=== PATIENT | female | born 1965 | race Caucasian/White ===

== ENCOUNTER 2016-05-20 20:19 | Emergency (ER) | payer OTHER ==
[~2016-05-20] VITALS: Ht 162.6 cm; Wt 152.2 kg
[~2016-05-20 20:19] MED LIST: ACET-785 PO; ALBUTEROL INHALER; AMOX500T10 PO; DIPH50CA34 PO; FLUT1DIS4 ORAL INH; GUAI-485 PO; IBUP-1324 PO; IPRA3AMP AEROSOL; LISI-127 PO; LORA10TA3 PO; PRED-221 PO; [UNRECOGNIZED DRUG - CODE] PO
--- OUTSIDE RECORDS SUMMARY | 2016-05-20 20:22 | XMS REPORT | Referral Summary ---
Author Author [facility] Organization [facility] Address Unknown Phone Unavailable Care Team Providers Care Caretaker Grounds Name Role Phone Kristal Li Primary Care Physician [phone] Encounter VC Date(s): 12/26/14 - 12/26/14 [facility] [address] [place] [address]- Discharge Disposition: 01-Home or Self Care Attending Physician: Dante Li MD Admitting Physician: Dante Li MD Vital Signs Most recent to 1 oldest [Reference Range]: Peripheral Pulse 87 bpm Rate [60-100 bpm] (12/26/14 10:56 AM) Blood Pressure 114/76 mmHg [90-140/60-90 mmHg] (12/26/14 10:56 AM) SpO2 94 % (12/26/14 10:56 AM) Problem List Condition Effective Dates Status Health Status Informant Anemia(Confirmed) Active Anxiety(Confirmed) Active Asthma(Confirmed) Resolved Benign essential Active hypertension (disorder)(Confirmed ) Chicken Active pox(Confirmed) COPD(Confirmed) Resolved Depression(Confirmed Active ) Exacerbation of Active asthma (disorder)(Confirmed ) Headache(Confirmed) Active Hypertension(Confirm Resolved ed) Migraine Active (disorder)(Confirmed ) Morbid Resolved obesity(Confirmed) Tobacco Active use(Confirmed) Varicella Active zoster(Confirmed) Allergies, Adverse Reactions, Alerts No Known Medication Allergies Medications Claritin-D 24 Hour tabs, Oral, Daily, as needed for allergy symptoms, 0 Refill(s) Start Date: 02/12/14 Status: Ordered Depakote 250 mg oral delayed release tablet See Instructions, Takes 1500mg QHS, # 60 tabs, 2 Refill(s), eRx: [facility] #[id number], TAKE ONE TABLET BY MOUTH TWICE A DAY Start Date: 07/10/14 Status: Ordered Excedrin Migraine 2 tabs, Oral, q6hr, Migraine Headache, 0 Refill(s) Start Date: 05/13/14 Status: Ordered hydrOXYzine See Instructions, 25mg during the day and 50mg at HS, 0 Refill(s) Start Date: 12/26/14 Status: Ordered ipratropium-albuterol 0.5 mg-2.5 mg/3 mLinhalation solution 3 mL, Inhalation, QID, Wheezing, # 90 mL, 1 Refill(s), Pharmacy: [facility] #[id number] Start Date: 11/22/13 Status: Ordered lisinopril 10 mg oral tablet See Instructions, TAKE ONE TABLET BY MOUTH DAILY, # 90 tabs, eRx: [facility] #[id number], TAKE ONE TABLET BY MOUTH DAILY Start Date: 11/06/14 Status: Ordered Mucinex DM tabs, Oral, q12hr, SINUS CONGESTION, 0 Refill(s) Start Date: 02/12/14 Status: Ordered traZODone 100 mg oral tablet 100 mg 1 tabs, Oral, Bedtime (once a day), 0 Refill(s) Start Date: 12/26/14 Status: Ordered Tylenol Extra Strength mg, Oral, q6hr, 0 Refill(s) Start Date: 02/12/14 Status: Ordered Ventolin HFA 90 mcg/inh inhalation aerosol 2 puffs, Inhalation, QID, as needed for wheezing Start Date: 08/04/13 Status: Ordered Results No data available for this section Immunizations Vaccine Date Refusal Reason influenza virus vaccine, inactivated 11/18/14 influenza virus vaccine, inactivated1 11/22/13 influenza virus vaccine, live 12/07/12 influenza virus vaccine, live 11/26/11 tetanus-diphth toxoids (Td) adult/adol 08/20/04 1Result Comment: [11/22/2013] SEE SCANNED NOTE Procedures Procedure Date Related Diagnosis Body Site S/P right knee arthroscopy/"clean up" 2012 Arthroscopic debridement of knee joint, right 04/24/10 H/O removal of cyst from chest Hysterectomy Social History Social History Type Response Smoking Status Former smoker; Type: Cigarettes; Tobacco use per day: 1 Pack ; Number of years: 36 Assessment and Plan Extracted from: Title: Office Visit Note Author: Dante Li MD Date: 12/26/14 Assessment/Plan Ganglion cyst Orders: divalproex sodium, See Instructions, Takes 1500mg QHS, # 60 tabs, 2 Refill(s), eRx: [facility] #[id number], TAKE ONE TABLET BY MOUTH TWICE A DAY Internal Referral to Orthopedic We discussed ganglion cyst and recommended referral for full excision. We will arrange a consultation. We discussed weight loss approach and also talked about hearing loss and whether or not to do hearing testing. Now we decided just to observe and follow-up if this problem gets worse. Otherwise follow-up with me when necessary. Referrals to Other Providers ganglion cyst on wrist Referred by: Dante Li MD
--- OUTSIDE RECORDS SUMMARY | 2016-05-20 20:22 | XMS REPORT | Referral Summary ---
Author Author [facility] Organization [facility] Address Unknown Phone Unavailable Care Team Providers Care Study Manager Name Role Phone Kristal Li Primary Care Physician [phone] Encounter VC Date(s): 11/18/14 - 11/18/14 [facility] [address] [place] [address] Discharge Disposition: 01-Home or Self Care Attending Physician: Dante Li MD Admitting Physician: Dante Li MD Vital Signs No data available for this section Problem List Condition Effective Dates Status Health Status Informant Anemia(Confirmed) Active Anxiety(Confirmed) Active Asthma(Confirmed) Resolved Asthma(Confirmed) Active patient Benign essential Active hypertension (disorder)(Confirmed ) Chicken Active pox(Confirmed) COPD(Confirmed) Resolved Depression(Confirmed Active ) Exacerbation of Active asthma (disorder)(Confirmed ) Orthopedic Active aftercare(Confirmed) Ganglion cyst of Active wrist(Confirmed) Headache(Confirmed) Active Hypertension(Confirm Resolved ed) Migraine Active (disorder)(Confirmed ) Morbid Resolved obesity(Confirmed) Morbid Active patient obesity(Confirmed) ZURI (obstructive Active patient sleep apnea)(Confirmed) Tobacco Active use(Confirmed) Varicella Active zoster(Confirmed) Allergies, Adverse Reactions, Alerts No Known Medication Allergies Substance Reaction Severity Status Latex Rash Active Medications Claritin-D 24 Hour tabs, Oral, Daily, as needed for allergy symptoms, 0 Refill(s) Start Date: 02/12/14 Status: Ordered Depakote Oral, TID, 0 Refill(s) Start Date: 03/05/15 Status: Ordered Depakote 250 mg oral delayed release tablet See Instructions, Takes 1500mg QHS, # 60 tabs, 2 Refill(s), eRx: [facility] #[id number], TAKE ONE TABLET BY MOUTH TWICE A DAY Start Date: 07/10/14 Status: Ordered hydrOXYzine See Instructions, 25mg during the day and 50mg at HS, 0 Refill(s) Start Date: 12/26/14 Status: Ordered ipratropium-albuterol 0.5 mg-2.5 mg/3 mLinhalation solution 3 mL, Inhalation, QID, Wheezing, # 1 boxes, 1 Refill(s), Pharmacy: [facility] #[id number] Start Date: 04/28/15 Status: Ordered lisinopril 10 mg oral tablet See Instructions, TAKE ONE TABLET BY MOUTH DAILY, # 90 tabs, eRx: [facility] #[id number], TAKE ONE TABLET BY MOUTH DAILY Start Date: 05/05/15 Status: Ordered Lortab 10/325 oral tablet 1 tabs, Oral, q4hr, # 60 tabs, 0 Refill(s) Start Date: 03/06/15 Status: Ordered Mucinex DM tabs, Oral, q12hr, SINUS CONGESTION, 0 Refill(s) Start Date: 02/12/14 Status: Ordered traZODone 100 mg oral tablet 100 mg 1 tabs, Oral, Bedtime (once a day), 0 Refill(s) Start Date: 12/26/14 Status: Ordered Tylenol Extra Strength mg, Oral, q6hr, 0 Refill(s) Start Date: 02/12/14 Status: Ordered Ventolin HFA 90 mcg/inh inhalation aerosol See Instructions, INHALE TWO PUFFS BY MOUTH EVERY 4 TO 6 HOURS NEEDED, # 18 unknown unit, 1 Refill(s), eRx: [facility] #[id number], INHALE TWO PUFFS BY MOUTH EVERY 4 TO 6 HOURS NEEDED Start Date: 02/13/15 Status: Ordered Results No data available for this section Immunizations Vaccine Date Refusal Reason influenza virus vaccine, inactivated 11/18/14 influenza virus vaccine, inactivated1 11/22/13 influenza virus vaccine, live 12/07/12 influenza virus vaccine, live 11/26/11 tetanus-diphth toxoids (Td) adult/adol 08/20/04 1Result Comment: [11/22/2013] SEE SCANNED NOTE Procedures Procedure Date Related Diagnosis Body Site Excision of left dorsal wrist ganglion cyst 03/06/15 S/P right knee arthroscopy/"clean up" 2012 Arthroscopic debridement of knee joint, right 04/24/10 H/O removal of cyst from chest Hysterectomy Social History Social History Type Response Smoking Status Former smoker; Type: Cigarettes; Tobacco use per day: 1 Pack ; Number of years: 35 Assessment and Plan No data available for this section
--- OUTSIDE RECORDS SUMMARY | 2016-05-20 20:22 | XMS REPORT | Referral Summary ---
Author Author [facility] Organization [facility] Address Unknown Phone Unavailable Care Team Providers Care Nursing Home Admissions Director Name Role Phone Kristal Li Primary Care Physician [phone] Encounter Date(s): 09/18/15 - 09/18/15 [facility] [address] [place], [place] [address] Discharge Diagnosis: Shortness of breath Discharge Disposition: 01-Home or Self Care Attending Physician: Stanislaw Hirsch MD Admitting Physician: Stanislaw Hirsch MD Referring Physician: Dante Li MD Vital Signs Most recent to 1 oldest [Reference Range]: Peripheral Pulse 87 bpm Rate [60-100 bpm] (09/18/15 1:32 PM) Blood Pressure 122/70 mmHg [90-140/60-90 mmHg] (09/18/15 1:32 PM) SpO2 96 % (09/18/15 1:32 PM) Problem List Condition Effective Dates Status Health [...] ZURI (obstructive Active patient sleep apnea)(Confirmed) Tobacco < 11/21/13 Resolved use(Confirmed) Varicella Active zoster(Confirmed) Allergies, Adverse Reactions, Alerts No Known Medication Allergies Substance Reaction Severity Status Latex Rash Active Medications Advil Migraine 1 tabs, Oral, q6hr, as needed for migraine headache, 0 Refill(s) Start Date: 09/18/15 Status: Ordered lisinopril 10 mg oral tablet See Instructions, TAKE ONE TABLET BY MOUTH DAILY, # 90 tabs, eRx: [facility] #[id number], TAKE ONE TABLET BY MOUTH DAILY Start Date: 08/04/15 Status: Ordered Tylenol Extra Strength 1 tabs, Oral, q6hr, as needed for pain, 0 Refill(s) Start Date: 02/12/14 Status: Ordered Ventolin HFA 90 mcg/inh inhalation aerosol See Instructions, INHALE TWO PUFFS BY MOUTH EVERY 4 TO 6 HOURS NEEDED, # 18 unknown unit, 1 Refill(s), eRx: [facility] #[id number], INHALE TWO PUFFS BY MOUTH EVERY 4 [...] 35 Assessment and Plan Extracted from: Title: Consult Note Author: Stanislaw Hirsch MD Date: 09/18/15 Assessment/Plan 1.Shortness of breath Review of her imaging indicates normal chest x-rays. PFTs was slightly reduced FVC and ERVbut with a relatively normal total lung capacity and minimally reduced diffusion capacity. These changes can be seen with obesity. Shortness of breathmost likely multifactorialrelated to smoking, morbid obesityand deconditioning. It is unclear if the patient has stopped smoking, she mentioned that she stoped9 months ago but then reported smoking a cigarette every now and then upto 2-3 months ago. Other causes would include diastolic heart failure andasthmaalthough clinicallydoes not seem like she has asthma. Plan: Methacholine challenge test to rule out asthma Echocardiogram Encouraged weight losswith exercise and diet Counseled regardingsmoking cessationand avoiding secondhand smoke Continue to use CPAP for ZURI Return to clinicin 4-6 weeks
--- OUTSIDE RECORDS SUMMARY | 2016-05-20 20:23 | XMS REPORT | Referral Summary ---
Author Author [facility] Organization [facility] Address Unknown Phone Unavailable Care Team Providers Care Seal Extrusion Operator Name Role Phone Kristal Li Primary Care Physician [phone] Encounter [facility] [id number] Date(s): 03/06/15 - 03/06/15 [facility] [address] [place], [place] [address] Discharge Diagnosis: Ganglion cyst of wrist Discharge Disposition: 01-Home or Self Care Attending Physician: Jose Chambers MD Admitting Physician: Jose Chambers MD Vital Signs Most recent to 1 oldest [Reference Range]: Temperature Temporal 36.5 degC Artery [36.3-37.8 (03/06/15 6:31 AM) degC] Peripheral Pulse 98 bpm Rate [60-100 bpm] (03/06/15 6:31 AM) Respiratory Rate 20 br/min [14-20 br/min] (03/06/15 6:31 AM) Blood Pressure 137/72 mmHg [90-140/60-90 mmHg] (03/06/15 6:31 AM) SpO2 96 % (03/06/15 6:31 AM) Problem List Condition Effective Dates Status Health Status Informant Anemia(Confirmed) Active Anxiety(Confirmed) Active Asthma(Confirmed) Resolved Asthma(Confirmed) Active patient Benign essential Active hypertension (disorder)(Confirmed ) Chicken Active pox(Confirmed) COPD(Confirmed) Resolved Depression(Confirmed Active ) Exacerbation of Active asthma (disorder)(Confirmed ) Ganglion cyst of Active wrist(Confirmed) Headache(Confirmed) Active [...] QHS, # 60 tabs, 2 Refill(s), eRx: [facility] #[id number], TAKE ONE TABLET BY MOUTH TWICE A DAY Start Date: 07/10/14 Status: Ordered hydrOXYzine See Instructions, 25mg during the day and 50mg at HS, 0 Refill(s) Start Date: 12/26/14 Status: Ordered ipratropium-albuterol 0.5 mg-2.5 mg/3 mLinhalation solution 3 mL, Inhalation, QID, Wheezing, # 90 mL, 1 Refill(s), Pharmacy: [facility] #[id number] Start Date: 11/22/13 Status: Ordered ketorolac 10 mg oral tablet 10 mg 1 tabs, Oral, QID, as needed for pain, not to exceed 40 mg/day and 5 days duration for all dose forms, # 19 tabs, 0 Refill(s) Start Date: 03/06/15 Stop Date: 03/11/15 Status: Ordered lisinopril 10 mg oral tablet See Instructions, TAKE ONE TABLET BY MOUTH DAILY, # 90 tabs, eRx: [facility] #[id number], TAKE ONE TABLET BY MOUTH DAILY Start Date: 02/03/15 Status: Ordered Lortab 10/325 oral tablet 1 [...] # 18 unknown unit, 1 Refill(s), eRx: [facility] #[id number], INHALE TWO PUFFS BY MOUTH EVERY 4 [...] 35 Assessment and Plan Extracted from: Title: Ambulatory Patient Education Author: Harper Coates RN Date: [facility] [place] [facility] Operative Instructions Ambulation _ Unrestricted _On Crutches as tolerated - _ Weight Bearing: _ Partial _ Full _x nonweight bearing Exercise _x None _Light _ _Unrestricted _ _Other: _Do not strain or lift more than lbs. for weeks. Diet __ Liquids (Jell-O, soups, etc., if you are nauseated) __ Begin with liquids and light foods then progress to regular diet. __x Regular diet __ No alcoholic beverages for 24 hours or while taking pain medication. Personal hygiene _x_ Bath or shower (keep splint dry) __ Shower after __ hours __ Sponge Bath __ [facility] __ Remove dressing in ___hours _x_ Keep dressing clean and dry. _x_ Elevate affected area above level of your heart. _x_ Do not change dressing until you see your doctor. __ Apply ice to area for ___ hours __ Avoid blowing nose. __ Wear sling as directed. __ Keep water out of ears __ Remove drain in ___ hours __ Change dressing as necessary. Other: If any problems occur or if you have any further questions, please contact your physician. In an emergency, call [phone] ([phone]), if you cannot reach your physician. If you find that you cannot contact your physician, but feel that your signs and symptoms warrant a physicians attention, go to an Emergency room which is the closest to you. Activities: _x_ Take Tylenol/ibuprofen as needed for discomfort _x_ Prescription given for discomfort. Use as directed. __ Prescription given for antibiotic. Follow instructionson label. Continue taking until medication is gone. __ Resume routine medications. __ Ear drainage more than Days __ Stool softener Next dose of pain medicine may be given at (Take with food to prevent stomach upset.) Other: Call your surgeon promptly if you have: _x_ Fever over _100.4 __ Pain not relieved by pain medication _x_ Bleeding or unexpected drainage from incision __ Extreme redness or swelling around incision. __ Inability to urinate by: __ Persistent nausea and vomiting. __ Cough develops or difficulty breathing Do NOT drive or operate hazardous machinery for 24 hours or while taking pain medication. Do not sign any important documents or make important decisions for 24 hours following surgery. When taking pain medicine, be careful as you walk or climb stairs as dizziness is not unusual. Check temperature every four hours during the day for two days. Follow Up With: Where: When: Jose Chambers [address] [place] [address] Business (1) In 2 weeks 03/20/2015 Comments:
--- OUTSIDE RECORDS SUMMARY | 2016-05-20 20:23 | XMS REPORT | Referral Summary ---
Author Author [facility] Organization [facility] Address Unknown Phone Unavailable Care Team Providers Care Credit Verification Clerk Name Role Phone Kristal Li Primary Care Physician [phone] Encounter VC Date(s): 10/30/15 - 10/30/15 [facility] [address] [place] [address]- Discharge Disposition: 01-Home or Self Care Attending Physician: Sanchez Wright APRN Admitting Physician: Sanchez Wright APRN Vital Signs Most recent to 1 oldest [Reference Range]: Temperature Tympanic 36.9 degC [36.6-38.1 degC] (10/30/15 3:43 PM) Peripheral Pulse 87 bpm Rate [60-100 bpm] (10/30/15 3:43 PM) Respiratory Rate 17 br/min [14-20 br/min] (10/30/15 3:43 PM) Blood Pressure 138/88 mmHg [90-140/60-90 mmHg] (10/30/15 3:43 PM) SpO2 98 % (10/30/15 3:43 PM) Problem List Condition Effective Dates Status [...] BY MOUTH DAILY, # 90 tabs, eRx: [facility] #[id number], TAKE ONE TABLET BY MOUTH DAILY Start Date: 08/04/15 Status: Ordered meloxicam 15 mg oral tablet See Instructions, TAKE ONE TABLET BY MOUTH DAILY, # 30 tabs, 0 Refill(s), Pharmacy: [facility] #[id number], TAKE ONE TABLET BY MOUTH DAILY Start Date: 10/30/15 Status: Ordered Tylenol Extra Strength 1 tabs, Oral, q6hr, as needed for pain, 0 Refill(s) Start Date: 02/12/14 Status: Ordered Ventolin HFA 90 mcg/inh inhalation aerosol See Instructions, INHALE TWO PUFFS BY MOUTH EVERY 4 TO 6 HOURS NEEDED, # 18 unknown unit, 1 Refill(s), eRx: [facility] #[id number], INHALE TWO PUFFS BY MOUTH EVERY 4 TO 6 HOURS NEEDED Start Date: 02/13/15 Status: Ordered Results Chemistry Most recent to 1 oldest [Reference Range]: Sodium Lvl [135-144 141 mEq/L mEq/L] (10/30/15 4:39 PM) Potassium Lvl 5.0 mEq/L [3.5-5.2 mEq/L] (10/30/15 4:39 PM) Chloride [99-111 103 mEq/L mEq/L] (10/30/15 4:39 PM) CO2 [22-31 mEq/L] 31 mEq/L (10/30/15 4:39 PM) AGAP [3-20] 7 (10/30/15 4:39 PM) BUN [7-19 mg/dL] 17 mg/dL (10/30/15 4:39 PM) Glucose Lvl [70-99 96 mg/dL mg/dL] (10/30/15 4:39 PM) Creatinine Lvl 0.73 mg/dL [0.57-1.11 mg/dL] (10/30/15 4:39 PM) eGFR [>60 mL/min] >60 mL/min 1 (10/30/15 4:39 PM) Calcium Lvl 10.0 mg/dL [8.9-10.5 mg/dL] (10/30/15 4:39 PM) 1Result Comment: Multiply eGFR results by 1.21 for race. Immunizations Vaccine Date Refusal Reason influenza virus [...]
--- OUTSIDE RECORDS SUMMARY | 2016-05-20 20:23 | XMS REPORT | Referral Summary ---
Author Author [facility] Organization [facility] Address Unknown Phone Unavailable Care Team Providers Care Subsurface Augmentee Elint Operator Name Role Phone Kristal Li Primary Care Physician [phone] Encounter Date(s): 09/18/15 - 09/18/15 [facility] [address] [place], [place] [address] Discharge Disposition: 01-Home or Self Care Attending Physician: Stanislaw Hirsch MD Referring Physician: Stanislaw Hirsch MD Vital Signs No data available for [...] BY MOUTH DAILY, # 90 tabs, eRx: [facility] #[id number], TAKE ONE TABLET BY MOUTH DAILY Start Date: 08/04/15 Status: Ordered Tylenol Extra Strength 1 tabs, Oral, q6hr, as needed for pain, 0 Refill(s) Start Date: 02/12/14 Status: Ordered Ventolin HFA 90 mcg/inh inhalation aerosol See Instructions, INHALE TWO PUFFS BY MOUTH EVERY 4 TO 6 HOURS NEEDED, # 18 unknown unit, 1 Refill(s), eRx: [facility] #[id number], INHALE TWO PUFFS BY MOUTH EVERY 4 [...]
--- OUTSIDE RECORDS SUMMARY | 2016-05-20 20:23 | XMS REPORT | Referral Summary ---
Author Author [facility] Organization [facility] Address Unknown Phone Unavailable Care Team Providers Care Escort Car Driver Name Role Phone Kristal Li Primary Care Physician [phone] Encounter VC Date(s): 04/28/15 - 04/28/15 [facility] [address] [place] [id number]- Discharge Disposition: 01-Home or Self Care Attending Physician: Sanchez Wright APRN Admitting Physician: Sanchez Wright APRN Vital Signs Most recent to 1 oldest [Reference Range]: Temperature Tympanic 38.5 degC [36.6-38.1 degC] *HI* (04/28/15 2:30 PM) Peripheral Pulse 123 bpm Rate [60-100 bpm] *HI* (04/28/15 2:30 PM) Blood Pressure 120/60 mmHg [90-140/60-90 mmHg] (04/28/15 2:30 PM) SpO2 92 % (04/28/15 2:30 PM) Problem List Condition Effective Dates Status [...] Reaction Severity Status Latex Rash Active Medications Augmentin 875 mg-125 mg oral tablet 1 tabs, Oral, q12hr, X 10 days, # 20 tabs, 0 Refill(s), Pharmacy: [facility] #[id number] Start Date: 04/28/15 Stop Date: 05/08/15 Status: Ordered Claritin-D 24 Hour tabs, Oral, Daily, as needed for allergy symptoms, 0 Refill(s) Start Date: 02/12/14 Status: Ordered Depakote Oral, TID, 0 Refill(s) Start Date: 03/05/15 Status: Ordered Depakote 250 mg oral delayed release tablet See Instructions, Takes 1500mg QHS, # 60 tabs, 2 Refill(s), eRx: [facility] #[id number], TAKE ONE TABLET BY MOUTH TWICE A DAY Start Date: 07/10/14 Status: Ordered hydrOXYzine See Instructions, 25mg during the day and 50mg at HS, 0 Refill(s) Start Date: 12/26/14 Status: Ordered ipratropium-albuterol 0.5 mg-2.5 mg/3 mLinhalation solution 3 mL, Inhalation, QID, Wheezing, # 1 boxes, 1 Refill(s), Pharmacy: [facility] #[id number] Start Date: 04/28/15 Status: Ordered lisinopril 10 mg oral tablet See Instructions, TAKE ONE TABLET BY MOUTH DAILY, # 90 tabs, eRx: [facility] #[id number], TAKE ONE TABLET BY MOUTH DAILY Start Date: 02/03/15 Status: Ordered Lortab 10/325 oral tablet 1 tabs, Oral, q4hr, # 60 tabs, 0 Refill(s) Start Date: 03/06/15 Status: Ordered Mucinex DM tabs, Oral, q12hr, SINUS CONGESTION, 0 Refill(s) Start Date: 02/12/14 Status: Ordered predniSONE 10 mg oral tablet See Instructions, 5 tabs PO for 3 days then 4 tabs PO for 3 days then 3 tabs PO for 3 days then 2 tabs PO for 3 days then 1 tab PO for 3 days, # 45 tabs, 0 Refill(s), Pharmacy: [facility] #[id number], 5 tabs PO for 3 days then 4 tabs PO for 3 days t... Start Date: 04/28/15 Stop Date: 05/12/15 Status: Ordered traZODone 100 mg oral tablet 100 mg 1 tabs, Oral, Bedtime (once a day), 0 Refill(s) Start Date: 12/26/14 Status: Ordered Tylenol Extra Strength mg, Oral, q6hr, 0 Refill(s) Start Date: 02/12/14 Status: Ordered Ventolin HFA 90 mcg/inh inhalation aerosol See Instructions, INHALE TWO PUFFS BY MOUTH EVERY 4 TO 6 HOURS NEEDED, # 18 unknown unit, 1 Refill(s), eRx: [facility] #[id number], INHALE TWO PUFFS BY MOUTH EVERY 4 TO 6 HOURS NEEDED Start Date: 02/13/15 Status: Ordered Results Hematology Most recent to 1 oldest [Reference Range]: WBC [5.0-10.0 9.1 10*3/uL 10*3/uL] (04/28/15 3:11 PM) RBC [3.70-5.20] 4.88 (04/28/15 3:11 PM) Hgb [12.0-16.0 13.7 gm/dL gm/dL] (04/28/15 3:11 PM) Hct [37.0-47.0 %] 41.1 % (04/28/15 3:11 PM) MCV [80.0-96.0 fL] 84.2 fL (04/28/15 3:11 PM) MCH [26.0-34.0 pg] 28.1 pg (04/28/15 3:11 PM) MCHC [32.0-36.0 33.3 gm/dL gm/dL] (04/28/15 3:11 PM) RDW [0.0-14.5 %] 13.4 % (04/28/15 3:11 PM) Platelet [150-400 283 10*3/uL 10*3/uL] (04/28/15 3:11 PM) MPV [8.8-14.8 fL] 9.1 fL (04/28/15 3:11 PM) Neutrophils [50-70 80 % %] *HI* (04/28/15 3:11 PM) Lymphocytes [20-40 10 % %] *LOW* (04/28/15 3:11 PM) Monocytes [4-8 %] 9 % *HI* (04/28/15 3:11 PM) Eosinophils [0-6 %] 0 % (04/28/15 3:11 PM) Basophils [0-2 %] 0 % (04/28/15 3:11 PM) Neutro Absolute 7.35 10*3 [2.50-7.00 10*3] *HI* (04/28/15 3:11 PM) Lymph Absolute 0.95 10*3 [1.00-4.00 10*3] *LOW* (04/28/15 3:11 PM) Perry Absolute 0.80 10*3 [0.20-0.80 10*3] (04/28/15 3:11 PM) Eos Absolute 0.01 10*3 [0.00-0.60 10*3] (04/28/15 3:11 PM) Baso Absolute 0.03 [0.00-0.30] (04/28/15 3:11 PM) Immunizations Vaccine Date Refusal Reason influenza virus vaccine, inactivated 11/18/14 influenza virus vaccine, inactivated1 11/22/13 influenza virus vaccine, live 12/07/12 influenza virus vaccine, live 11/26/11 tetanus-diphth toxoids (Td) adult/adol 08/20/04 1Result Comment: [11/22/2013] SEE SCANNED NOTE Procedures Procedure Date Related Diagnosis Body Site Collection of venous blood by venipuncture 04/28/15 Excision of left dorsal wrist ganglion cyst [...]
--- OUTSIDE RECORDS SUMMARY | 2016-05-20 20:23 | XMS REPORT | Referral Summary ---
Author Author [facility] Organization [facility] Address Unknown Phone Unavailable Care Team Providers Care Manager [place] Name Role Phone [email or web address] Primary Care Physician [phone] Encounter VC Date(s): 01/13/15 - 01/13/15 [facility] [address] [place], [place] [address] Discharge Diagnosis: Ganglion cyst of wrist Discharge Disposition: 01-Home or Self Care Attending Physician: Jose Chambers MD Admitting Physician: Jose Chambers MD Vital Signs No data available for [...] Morbid Resolved obesity(Confirmed) Morbid Active patient obesity(Confirmed) Tobacco Active use(Confirmed) Varicella Active zoster(Confirmed) Allergies, Adverse Reactions, Alerts No Known Medication Allergies Medications Claritin-D 24 Hour tabs, Oral, Daily, as needed for allergy symptoms, 0 Refill(s) Start Date: 02/12/14 Status: Ordered Depakote 250 mg oral delayed release tablet See Instructions, Takes 1500mg QHS, # 60 tabs, 2 Refill(s), eRx: [facility] #[id number], TAKE ONE TABLET BY MOUTH TWICE A DAY Start Date: 07/10/14 Status: Ordered Excedrin Migraine 2 tabs, Oral, q6hr, Migraine Headache, 0 Refill(s) Start Date: 05/13/14 Status: Ordered hydrOXYzine See Instructions, 25mg during the day and 50mg at HS, 0 Refill(s) Start Date: 12/26/14 Status: Ordered ipratropium-albuterol 0.5 mg-2.5 mg/3 mLinhalation solution 3 mL, Inhalation, QID, Wheezing, # 90 mL, 1 Refill(s), Pharmacy: [facility] #[id number] Start Date: 11/22/13 Status: Ordered lisinopril 10 mg oral tablet See Instructions, TAKE ONE TABLET BY MOUTH DAILY, # 90 tabs, eRx: [facility] #[id number], TAKE ONE TABLET BY MOUTH DAILY Start [...] Extracted from: Title: Ambulatory Patient Education Author: Jose Chambers MD Date: Procedures Ganglion Cyst A ganglion cyst is a noncancerous, fluid-filled lump that occurs near joints or tendons. The ganglion cyst grows out of a joint or the lining of a tendon. It most often develops in the hand or wrist but can also develop in the shoulder, elbow, hip, knee, ankle, or foot. The round or oval ganglion can be pea sized or larger than a grape. Increased activity may enlarge the size of the cyst because more fluid starts to build up. CAUSES It is not completely known what causes a ganglion cyst to grow. However, it may be related to: Inflammation or irritation around the joint. An injury. Repetitive movements or overuse. Arthritis. SYMPTOMS A lump most often appears in the hand or wrist, but can occur in other areas of the body. Generally, the lump is painless without other symptoms. However, sometimes pain can be felt during activity or when pressure is applied to the lump. The lump may even be tender to the touch. Tingling, pain, numbness, or muscle weakness can occur if the ganglion cyst presses on a nerve. Your computer systems technician may be weak and you may have less movement in your joints. DIAGNOSIS Ganglion cysts are most often diagnosed based on a physical exam, noting where the cyst is and how it looks. Your caregiver will feel the lump and may shine a light alongside it. If it is a ganglion, a light often shines through it. Your caregiver may order an X-ray, ultrasound, or MRI to rule out other conditions. TREATMENT Ganglions usually go away on their own without treatment. If pain or other symptoms are involved, treatment may be needed. Treatment is also needed if the ganglion limits your movement or if it gets infected. Treatment options include : Wearing a wrist or finger brace or splint. Taking anti-inflammatory medicine. Draining fluid from the lump with a needle (aspiration). Injecting a steroid into the joint. Surgery to remove the ganglion cyst and its stalk that is attached to the joint or tendon. However, ganglion cysts can grow back. HOME CARE INSTRUCTIONS Do not press on the ganglion, poke it with a needle, or hit it with a heavy object. You may rub the lump gently and often. Sometimes fluid moves out of the cyst. Only take medicines as directed by your caregiver. Wear your brace or splint as directed by your caregiver. SEEK MEDICAL CARE IF: Your ganglion becomes larger or more painful. You have increased redness, red streaks, or swelling. You have pus coming from the lump. You have weakness or numbness in the affected area. MAKE SURE YOU: Understand these instructions. Will watch your condition. Will get help right away if you are not doing well or get worse. Document Released: 01/28/2001 Document Revised: 10/25/2012 Document Reviewed: ExitCare Patient Information 2015 [employer]. This information is not intended to replace advice given to you by your health care provider. Make sure you discuss any questions you have with your health care provider. No follow up information was provided. Extracted from: Title: Office Visit Note Author: Jose Chambers MD Date: 01/13/15 Assessment/Plan X-ray shows no abnormalities of the wrist. Normal joint space alignment. No arthritic changes. I expanded the patient the process of removing the cyst. Withcapsulectomyassociated with the cyst. I explained that there will be discomfort for about a months or so after the procedure. She'll be in a wrist splint that will allow her to move her fingers right after the surgery. I did suggest that she take approximately5-7 days off work. I spend the rest of the procedure bleeding, infection, damage to nerve or tendon, E for further surgery, return of the cyst. Patient was scheduled for the near future.
--- OUTSIDE RECORDS SUMMARY | 2016-05-20 20:23 | XMS REPORT | Continuity of Care Document ---
Author Author [facility] Organization [facility] Address Unknown Phone Unavailable Support Name Relationship Address Phone SHANNAN RIVAS MD Caregiver [address] [place] [address] [place] [address] LEONA GILMAN MD Caregiver [address] [address] Unavailable JEREMIAH ABBASI MD Caregiver [address] [place], [place] [id number] ELVIS CASTRO Next Of Kin [address] [place] [address] Insurance Providers Payer Name Policy Number Subscriber Name Relationship [facility] [id number] Jeff Conley 19 Self Advance Directives Directive Response Recorded Date/Time Advanced Directives Type None 08/07/13 11:51pm Ordered Resuscitation Status Full Code 08/04/13 7:45pm Chief Complaint and Reason for Visit Chief Complaint COPD EXACERBATION Reason for Visit Pneumonia Asthma History of hypertension COPD exacerbation COPD exacerbation Hx of migraine headaches Morbid obesity with BMI of 50.0-59.9, adult Problems Medical Problems Problem Onset Date Status Pneumonia Unknown Active Asthma Unknown Active History of hypertension Unknown Active SIRS (systemic inflammatory response syndrome) Unknown Active Obesity (BMI 35.0-39.9 without comorbidity) Unknown Active COPD exacerbation Unknown Active COPD exacerbation Unknown Active Hx of migraine headaches Unknown Active Morbid obesity with BMI of 50.0-59.9, adult Unknown Active Medications Medication Dose Route Sig Days/Qty Instructions Order Date Discontinued Date Status [Albuterol Inhaler] NEEDED 10/12/09 Active Aspirin/Acetaminophen/Caffeine 1 Tab PO NEEDED 04/23/10 Active Acetaminophen 325 Mg PO NEEDED 04/23/10 Active Ibuprofen 200 Mg PO NEEDED 04/23/10 Active Bupropion Hcl 150 Mg PO TWICE A DAY 12/21/12 08/04/13 Discontinued Lisinopril 10 Mg PO DAILY 12/21/12 Active Acetaminophen/Dp-Hydram Hcl 1 Tab PO BEDTIME 12/21/12 08/04/13 Discontinued Salmeterol Xinafoate/Fluticasone 1 Puff ORAL INH TWICE A DAY 1 Qty Active Amoxicillin Trihydrate 500 Mg PO THREE TIMES A DAY 21 Qty 08/06/13 Active Guaifenesin/D-Methorphan Hb 1 Tab.sr PO TWICE A DAY 10 Days 08/06/13 Active Prednisone 20 Mg PO taper 11 Qty 08/06/13 Active Albuterol Sulfate/Ipratropium 3 Ml AEROSOL FOUR TIMES DAILY 30 Days Active Diphenhydramine Hcl 50 Mg PO BEDTIME 14 Days 08/10/13 Active Loratadine 10 Mg PO BEFORE BREAKFAST 14 Days 08/10/13 Active Social History Query Response Start Date Stop Date Smoking Status Current every day smoker Hospital Discharge Instructions Instructions: Care Instructions: Reason for Hospitalization: COPD/Asthma with acute exasterbation Discharge Diet: Low sodium Condition at time of discharge: Good Care Plan Discharge Patient: Goal: Medication compliance Patient Instructions: see patient instructions Discharge Patient: Patient Instructions: see patient instructions Problem: see problem list Discharge Patient: Goal: Maximum functional status Patient Instructions: see patient instructions Discharge Patient: Patient Instructions: see patient instructions Problem: see problem list Discharge Patient: Patient Instructions: see patient instructions Problem: see problem list 1.Chest pain, difficulty breathing, fever>100.5 degrees, chills, heart rate >100, confusion, or persistent nausea/vomitting. 2.Severe pain, swelling, redness, or warmth in either of your legs. 3.During office hours, call [phone] 4. After hours, please call [facility] at [phone], and have the corn sheller operator page your Surgeon IN THE EVENT OF AN EMERGENCY, seek medical care at the nearest Emergency Room Condition at time of discharge: Good Care Plan Discharge Patient: Patient Instructions: see patient instructions Problem: see problem list Discharge Patient: Patient Instructions: see patient instructions Problem: see problem list Plan of Care Discharge Date 08/10/13 6:45pm Disposition 01 DISCHARGED HOME, SELF-CARE Instructions/Education Provided DI for Chronic Obstructive Pulmonary Disease Prescriptions See Medications Section Functional Status Query Response Date Recorded Physical Hygiene Self August 10, 2013 6:04pm Disabilities Visual August 10, 2013 6:04pm Devices Used None August 07, 2013 11:18pm Dressing Self August 06, 2013 1:02pm Ambulation Self August 10, 2013 6:04pm Diet Self August 06, 2013 1:02pm Mental Status Alert Oriented August 10, 2013 6:04pm Disabilities Visual August 10, 2013 6:04pm Devices Used None August 07, 2013 11:18pm Physical Hygiene Self August 10, 2013 6:04pm Dressing Self August 06, 2013 1:02pm Ambulation Self August 10, 2013 6:04pm Diet Self August 06, 2013 1:02pm Allergies, Adverse Reactions, Alerts Allergen Type Severity Reaction Status Last Updated No Known Allergies Active 08/07/13 Immunizations Name Given Type Hx Influenza Vaccination Y 11/2012 Historical Hx Pneumococcal Vaccination No Historical Hx Influenza Vaccination Y 11/2012 Historical Vital Signs Acute Vital Signs Vital Response Date/Time Temperature (Fahrenheit) 97.2 deg F (96.8 - 99.1) Temperature (Calculated Celsius) 36.54293 degrees C (36.0 - 37.3) Temperature Source Temporal Pulse Rate (adult) 71 bpm (60 - 100) Respiratory Rate 16 breaths/min (10 - 20) O2 Sat by Pulse Oximetry 95 % (90 - 100) Oxygen Delivery Method Room Air Height 5 ft 4.5 in Weight 305 lb Body Mass Index 51.0 kg/m^2 Results Test Source Date Result Interp. Ref. Range Comments Alanine Aminotransferase (ALT/SGPT) August 08, 2013 4:54am 80 U/L H 9-52 Albumin August 08, 2013 4:54am 3.7 G/DL N 3.5-5.0 Albumin/Globulin Ratio August 08, 2013 4:54am 1.2 RATIO N 1.1-2.2 Alkaline Phosphatase August 08, 2013 4:54am 110 U/L N 38-126 Anion Gap August 10, 2013 4:30am 7 MEQ/L N 5-15 Aspartate Amino Transf (AST/SGOT) August 08, 2013 4:54am 45 U/L H 14-36 BUN/Creatinine Ratio August 10, 2013 4:30am 37 RATIO H 6-26 Band Neutrophils # August 09, 2013 4:37am 0.2 T/MM3 - Band Neutrophils % August 09, 2013 4:37am 1.0 % N 0-6 Basophils # (Auto) August 07, 2013 8:00pm 0.0 T/MM3 N 0-0.2 Basophils # (Manual) August 04, 2013 11:52am 0.3 T/MM3 H 0-0.2 Basophils % (Manual) August 04, 2013 11:52am 2.0 % N 0-2 Basophils (%) (Auto) August 07, 2013 8:00pm 0.2 % N 0-2 Blood Urea Nitrogen August 10, 2013 4:30am 22.0 MG/DL DH 7-17 Calcium Level August 10, 2013 4:30am 8.8 MG/DL N 8.4-10.2 Calculated Osmolality August 10, 2013 4:30am 273 MOSM/KG N 261-280 Carbon Dioxide Level August 10, 2013 4:30am 33 MEQ/L H 22-30 Chemistry Specimen Hemolysis August 10, 2013 4:30am < 15 0-25 0-25: No Hemolysis.26-70: Slight Hemolysis - can falsely elevate K and Urine Protein. 71-285: Moderate Hemolysis - can falsely elevate K, Troponin I, CA 19-9, PTH, CSF GLucose, and Urine Protein, and can falsely decrease Phenytoin. 286-999: Gross Hemolysis - can falsely elevate K, Troponin I, CA 19-9, PTH, CSF Glucose, and Urine Protine, and can falsely decrease Phenytoin. Recommend specimen recollection. Chloride Level August 10, 2013 4:30am 99 MEQ/L N 98-107 Conjugated Bilirubin October 12, 2009 9:40am 0.00 MG/DL N 0.00-0.30 Creatinine August 10, 2013 4:30am 0.6 MG/DL L 0.7-1.2 Differential Total Cells Counted October 14, 2009 4:25am 100 % - Eosinophils # (Auto) August 07, 2013 8:00pm 0.0 T/MM3 N 0-0.5 Eosinophils # (Manual) August 05, 2013 5:20am 0.1 T/MM3 N 0-0.5 Eosinophils % (Manual) August 05, 2013 5:20am 1.0 % N 0-4 Eosinophils (%) (Auto) August 07, 2013 8:00pm 0.1 % N 0-4 Globulin August 08, 2013 4:54am 3.0 G/DL N 2.4-3.6 Glomerular Filtration Rate Calc August 10, 2013 4:30am 108 - Glucose Level August 10, 2013 4:30am 142 MG/DL H 65-110 Hematocrit August 10, 2013 4:30am 40.0 % N 36-46 Hemoglobin August 10, 2013 4:30am 12.7 GM/DL N 12-16 Icterus Index August 10, 2013 4:30am < 2 0-7 Immature Granulocyte # (Auto) August 07, 2013 8:00pm 0.15 T/MM3 H 0.00- 0.03 Immature Granulocyte % (Auto) August 07, 2013 8:00pm 1.2 % H 0.0-0.5 Influenza Type A Antigen October 12, 2009 9:40am Negative - Influenza Type B Antigen October 12, 2009 9:40am Negative - Lab Scanned Report August 04, 2013 10:05pm LAB TEST FORM REQUEST [id number] - Lymphocytes # (Auto) August 07, 2013 8:00pm 2.4 T/MM3 N 1-4.8 Lymphocytes # (Manual) August 10, 2013 4:30am 3.4 T/MM3 N 1-4.8 Lymphocytes % (Manual) August 10, 2013 4:30am 19.0 % L 23-45 Lymphocytes (%) (Auto) August 07, 2013 8:00pm 19.5 % L 23-45 Mean Corpuscular Hemoglobin August 10, 2013 4:30am 27.7 UUG N 26-34 Mean Corpuscular Hemoglobin Concent August 10, 2013 4:30am 31.8 GM/DL N 31 -37 Mean Corpuscular Volume August 10, 2013 4:30am 87.1 UM3 N 80-100 Mean Platelet Volume August 10, 2013 4:30am 9.6 UM3 N 9.4-12.4 Monocytes # (Auto) August 07, 2013 8:00pm 0.6 T/MM3 N 0-0.8 Monocytes # (Manual) August 10, 2013 4:30am 0.9 T/MM3 H 0-0.8 Monocytes % (Manual) August 10, 2013 4:30am 5.0 % N 0-9.0 Monocytes (%) (Auto) August 07, 2013 8:00pm 4.8 % N 0-9.0 Neutrophils # (Auto) August 07, 2013 8:00pm 9.0 T/MM3 H 1.8-7.7 Neutrophils # (Manual) August 10, 2013 4:30am 13.5 T/MM3 H 1.8-7.7 Neutrophils % (Manual) August 10, 2013 4:30am 76.0 % H 33-66 Neutrophils (%) (Auto) August 07, 2013 8:00pm 74.2 % H 33-66 Platelet Count August 10, 2013 4:30am 400 T/MM3 N 130-400 Potassium Level August 10, 2013 4:30am 4.5 MEQ/L N 3.6-5 Procalcitonin August 07, 2013 8:07pm < 0.05 NG/ML - PCT </=0.5 ng/mL - sepsis not likely;PCT >0.5 and </=2 ng/mL - sepsis possible; PCT >2 ng/mL - sepsis likely; PCT >/=10 ng/mL - systemic inflammatory response - sepsis or septic shock highly indicated. RDW Standard Deviation August 10, 2013 4:30am 39.9 FL N 36.9-50.2 Red Blood Count August 10, 2013 4:30am 4.59 M/MM3 N 4.00-5.20 Sodium Level August 10, 2013 4:30am 139 MEQ/L N 134-144 Total Bilirubin August 08, 2013 4:54am 0.30 MG/DL N 0.20-1.30 Total Protein August 08, 2013 4:54am 6.7 G/DL N 6.3-8.2 Turbidity August 10, 2013 4:30am < 20 0-20 Unconjugated Bilirubin October 12, 2009 9:40am 0.18 MG/DL N 0.00-1.10 Urinalysis Comment August 08, 2013 12:40pm Microscopic not ind. - Has specimen been collected/obtained? Y Urine Bilirubin August 08, 2013 12:40pm Negative - Has specimen been collected/obtained? Y Urine Blood August 08, 2013 12:40pm Negative - Has specimen been collected/obtained? Y Urine Collection Type August 08, 2013 12:40pm Cleancatch-midstream - Has specimen been collected/obtained? Y Urine Color August 08, 2013 12:40pm Yellow - Has specimen been collected/obtained? Y Urine Glucose (UA) August 08, 2013 12:40pm Negative - Has specimen been collected/obtained? Y Urine Ketones August 08, 2013 12:40pm Negative - Has specimen been collected/obtained? Y Urine Leukocyte Esterase August 08, 2013 12:40pm Negative - Has specimen been collected/obtained? Y Urine Nitrite August 08, 2013 12:40pm Negative - Has specimen been collected/obtained? Y Urine Protein August 08, 2013 12:40pm Negative - Has specimen been collected/obtained? Y Urine Specific [place] August 08, 2013 12:40pm 1.020 - Has specimen been collected/obtained? Y Urine Turbidity August 08, 2013 12:40pm Clear - Has specimen been collected/obtained? Y Urine Urobilinogen August 08, 2013 12:40pm 0.2 EU/DL - Has specimen been collected/obtained? Y Urine pH August 08, 2013 12:40pm 6.0 - Has specimen been collected/ obtained? Y Venous Blood Lactate August 07, 2013 8:00pm 1.8 MMOL/L N 0.6-2.2 White Blood Count August 10, 2013 4:30am 17.7 T/MM3 H 4.5-11.0 Blood Culture Blood August 07, 2013 8:07pm NO GROWTH AFTER 5 DAYS Gram Stain Sputum-Expectorated Sputum October 15, 2009 1:03am Procedures No known history of procedures. Encounters Encounter Location Date/Time Discharged Inpatient [facility] 08/08/13 7:54pm Discharged Inpatient [facility] 08/04/13 12:56pm Registered Clinic [facility] 08/04/13 11:26am Recent Diagnosis Pneumonia Asthma History of hypertension COPD exacerbation COPD exacerbation Hx of migraine headaches Morbid obesity with BMI of 50.0-59.9, adult
--- OUTSIDE RECORDS SUMMARY | 2016-05-20 20:23 | XMS REPORT | Referral Summary ---
Author Author [facility] Medicine Organization [facility] Address Unknown Phone Unavailable Care Team Providers Care Torch Straightener Name Role Phone Kristal Li Primary Care Physician [phone] Encounter Date(s): 09/08/15 - 09/08/15 [facility] [address] [place] [address]- Discharge Diagnosis: ZURI (obstructive sleep apnea) Discharge Diagnosis: Dyspnea Discharge Diagnosis: Bipolar disorder Discharge Diagnosis: Benign essential hypertension (disorder) Discharge Diagnosis: Morbid obesity Discharge Diagnosis: Fatigue Discharge Disposition: 01-Home or Self Care Attending Physician: Dante Li MD Admitting Physician: Dante Li MD Vital Signs Most recent to 1 oldest [Reference Range]: Temperature Tympanic 36.9 degC [36.6-38.1 degC] (09/08/15 10:42 AM) Peripheral Pulse 87 bpm Rate [60-100 bpm] (09/08/15 10:42 AM) Blood Pressure 126/82 mmHg [90-140/60-90 mmHg] (09/08/15 10:42 AM) SpO2 96 % (09/08/15 10:42 AM) Problem List Condition Effective Dates Status [...] Reaction Severity Status Latex Rash Active Medications lisinopril 10 mg oral tablet See Instructions, TAKE ONE TABLET BY MOUTH DAILY, # 90 tabs, eRx: [facility] #[id number], TAKE ONE TABLET BY MOUTH DAILY Start Date: 08/04/15 Status: Ordered Tylenol Extra Strength mg, Oral, q6hr, 0 Refill(s) Start Date: 02/12/14 Status: Ordered Ventolin HFA 90 mcg/inh inhalation aerosol See Instructions, INHALE TWO PUFFS BY MOUTH EVERY 4 TO 6 HOURS NEEDED, # 18 unknown unit, 1 Refill(s), eRx: [facility] #[id number], INHALE TWO PUFFS BY MOUTH EVERY 4 TO 6 HOURS NEEDED Start Date: 02/13/15 Status: Ordered Results Chemistry Most recent to 1 oldest [Reference Range]: Sodium Lvl [135-144 141 mEq/L mEq/L] (09/08/15 12:08 PM) Potassium Lvl 4.6 mEq/L [3.5-5.2 mEq/L] (09/08/15 12:08 PM) Chloride [99-111 106 mEq/L mEq/L] (09/08/15 12:08 PM) CO2 [22-31 mEq/L] 26 mEq/L (09/08/15 12:08 PM) AGAP [3-20] 9 (09/08/15 12:08 PM) BUN [7-19 mg/dL] 12 mg/dL (09/08/15 12:08 PM) Glucose Lvl [70-99 85 mg/dL mg/dL] (09/08/15 12:08 PM) Creatinine Lvl 0.69 mg/dL [0.57-1.11 mg/dL] (09/08/15 12:08 PM) eGFR [>60 mL/min] >60 mL/min 1 (09/08/15 12:08 PM) Calcium Lvl 9.5 mg/dL [8.9-10.5 mg/dL] (09/08/15 12:08 PM) TSH with Reflex Free 2.63 T4 [0.35-4.94] (09/08/15 12:08 PM) 1Result Comment: Multiply eGFR results by 1.21 for race. Immunizations Vaccine Date Refusal Reason influenza virus vaccine, inactivated 11/18/14 influenza virus vaccine, inactivated1 11/22/13 influenza virus vaccine, live 12/07/12 influenza virus vaccine, live 11/26/11 tetanus-diphth toxoids (Td) adult/adol 08/20/04 1Result Comment: [11/22/2013] SEE SCANNED NOTE Procedures Procedure Date Related Diagnosis Body Site Collection of venous blood by venipuncture 09/08/15 Excision of left dorsal wrist ganglion cyst 03/06/15 S/P right knee arthroscopy/"clean up" 2012 Arthroscopic debridement of knee joint, right 04/24/10 H/O removal of cyst from chest Hysterectomy Social History Social History Type Response Smoking Status Former smoker; Type: Cigarettes; Tobacco use per day: 1 Pack ; Number of years: 35 Assessment and Plan Extracted from: Title: Acute OV- SOB Author: Dante Li MD Date: 09/08/15 Impression and Plan Diagnosis ZURI (obstructive sleep apnea) (YQR88-GP G47.33, Discharge, Medical). Morbid obesity (YAK05-JD E66.01, Discharge, Medical). Fatigue (ZCB32-EB R53.83, Discharge, Medical). Dyspnea (ABK22-LV R06.00, Discharge, Medical). Bipolar disorder (JEJ04-SB F31.9, Discharge, Medical). Benign essential hypertension (disorder) (EGN80-MG I10, Discharge, Medical). Orders Orders (Selected) Outpatient Orders Future (On Hold) BMP: TSH with Reflex Free T4: .
--- OUTSIDE RECORDS SUMMARY | 2016-05-20 20:23 | XMS REPORT | Summary of Care ---
Author Author Shae Alba M.D. Organization Unknown Address Unknown Phone Unavailable Care Team Providers Care Block Cutter Name Role Phone Michelle Alba M.D. Unavailable Unavailable No Assigned PCP-Pt Confirmed Unavailable Unavailable Unavailable Unavailable Functional Status Name Dates Details Functional status health issues are not documented Status: Name Dates Details Cognitive status health issues are not documented Status: Problems Name Dates Details Joint pain, knee (719.46, M25.569) Status: Active Hypertension (401.9, I10) Status: Active Insomnia (780.52, G47.00) Status: Active Right knee sprain (844.9, S83.91XA) Status: Active Medications Name Dates Details Depakote ER 500 MG Oral Tablet Extended Release 24 Hour TAKE 3 TABLET Daily * Start 23-Jan-2015 Active Lisinopril 10 MG Oral Tablet TAKE 1 TABLET DAILY. * Quantity: 30 Refills: 0 * Start 23-Jan-2015 Active TraZODone HCl - 100 MG Oral Tablet 1 tab at HS * Refills: 0 * Start 23-Jan-2015 Active Allergies and Adverse Reactions Name Dates Details No Known Drug Allergies (Allergy) Status: Active Procedures Procedure Dates Details Procedures not documented Immunization Name Dates Details Immunizations not documented Social History Name Dates Details - Status: Name Dates Details Former smoker Vital Signs Date Test Result Details 08-Nov-2015 15:46 BP Systolic 110 mm[Hg] Status: Comments: Location: ; Position: BP Diastolic 60 mm[Hg] Status: Comments: Location: ; Position: Temperature 97.3 f Status: Comments: Method: Heart Rate 92 /min Status: Comments: Location: ; Physical Findings 99 Status: Comments: O2 Saturation Results Date Description Value Details Results not documented Plan of Care Name Dates Details Planned Observations Planned Goals not documented Instructions Name Dates Details Instructions not documented Encounters Appointment; Nilda Barr A.P.R.N. Encounter Diagnosis: Problem not documented On 23-Jan-2015 10:45
--- OUTSIDE RECORDS SUMMARY | 2016-05-20 20:23 | XMS REPORT | Summary of Care ---
Author Author Nilda Barr APRN Organization Unknown Address [address] [place], [place] [id number] Phone Unavailable Care Team Providers Care Mail Order Biller Name Role Phone No Assigned PCP-Pt Confirmed PP Unavailable Unavailable Unavailable Functional Status Functional Status Health Issues* Name Dates Details Functional status health issues are not documented Status: Cognitive Status Health Issues* Name Dates Details Cognitive status health issues are not documented Status: Problems Name Dates Details Joint pain, knee (719.46, M25.569) Status: Active Hypertension (401.9, I10) Status: Active Insomnia (780.52, G47.00) Status: Active Medications Name Dates Details Depakote ER 500 MG Oral Tablet Extended Release 24 Hour TAKE 3 TABLET Daily * Started 23-Jan-2015 ActiveLisinopril 10 MG Oral Tablet TAKE 1 TABLET DAILY. * Quantity: 30 Refills: 0 * Started 23-Jan-2015 ActiveTraZODone HCl - 100 MG Oral Tablet 1 tab at HS * Refills: 0 * Started 23-Jan-2015 Active Allergies and Adverse Reactions Name Dates Details No Known Drug Allergies Status: Active Procedures Procedure Dates Details Procedures not documented Immunization Name Dates Details Immunizations not documented Social History Name Dates Details Smoking Status* Former smoker Vital Signs Date Test Result Details 23-Jan-2015 10:44 BP Systolic 119 mm[Hg] Status: BP Diastolic 81 mm[Hg] Status: Temperature 98.4 f Status: Heart Rate 100 /min Status: Weight 311 lb Status: O2 SAT 97 % Status: Results Date Description Value Details Results not documented Plan of Care Planned Observations* Name Dates Details Planned Goals not documented Goal Instructions * Instructions not documented Encounters Appointment; Nilda Barr Encounter Diagnosis: Problem not documented On 23-Jan-2015 10:45
--- OUTSIDE RECORDS SUMMARY | 2016-05-20 20:23 | XMS REPORT | Continuity of Care Document ---
Author Author [facility] Organization [facility] Address Unknown Phone Unavailable Support Name Relationship Address Phone SHANNAN RIVAS MD Caregiver [address] [place] [address] [place] [address] LEONA GILMAN MD Caregiver [address] [address] Unavailable JEREMIAH ABBASI MD Caregiver [address] [place], [place] [id number] ELVIS CASTRO Next Of Kin [address] [place] [address] Insurance Providers Payer Name Policy Number Subscriber Name Relationship [facility] [id number] Jeff Conley 19 Self Advance Directives Directive [...] Medication compliance Patient Instructions: see patient instructions Keep wounds dry New Scripts Called to Pharmacy: percocet 5/325mg as needed every 4hours for pain Condition at time of discharge: Good Care Plan Discharge Patient: Goal: Pain is contolled Patient Instructions: see patient instructions Care Plan Discharge Patient: Goal: Understand discharge plan Patient Instructions: see patient instructions Room Condition at time of discharge: Good Care Plan Discharge Patient: Goal: Understand discharge plan Patient Instructions: see patient instructions Problem: see [...] F (96.8 - 99.1) Temperature (Calculated Celsius) 36.72724 degrees C (36.0 - 37.3) Temperature Source [...] 04, 2013 10:05pm LAB TEST FORM REQUEST [id number] - Lymphocytes # (Auto) August 07, 2013 [...] Has specimen been collected/obtained? Y Urine Specific [place] August 08, 2013 12:40pm 1.020 - Has [...] procedures. Encounters Encounter Location Date/Time Discharged Inpatient [facility] 08/08/13 7:54pm Discharged Inpatient [facility] 08/04/13 12:56pm Registered Clinic [facility] 08/04/13 11:26am Recent Diagnosis Pneumonia Asthma History of hypertension COPD exacerbation COPD exacerbation Hx of migraine headaches Morbid obesity with BMI of 50.0-59.9, adult
--- OUTSIDE RECORDS SUMMARY | 2016-05-20 20:24 | XMS REPORT | Referral Summary ---
Author Author [facility] Organization [facility] Address Unknown Phone Unavailable Care Team Providers Care Director Of Physiotherapy Services Name Role Phone Kristal Li Primary Care Physician [phone] Encounter VC Date(s): 04/22/15 - 04/22/15 [facility] [address] [place], [place] [address] Discharge Disposition: 01-Home or Self Care Attending Physician: Buster Copeland MD Admitting Physician: Buster Copeland MD Referring Physician: Buster Copeland MD Vital Signs No data available for [...] QHS, # 60 tabs, 2 Refill(s), eRx: [facility] #[id number], TAKE ONE TABLET BY MOUTH TWICE A DAY Start Date: 07/10/14 Status: Ordered hydrOXYzine See Instructions, 25mg during the day and 50mg at HS, 0 Refill(s) Start Date: 12/26/14 Status: Ordered ipratropium-albuterol 0.5 mg-2.5 mg/3 mLinhalation solution 3 mL, Inhalation, QID, Wheezing, # 90 mL, 1 Refill(s), Pharmacy: [facility] #[id number] Start Date: 11/22/13 Status: Ordered lisinopril 10 mg oral tablet See Instructions, TAKE ONE TABLET BY MOUTH DAILY, # 90 tabs, eRx: [facility] #[id number], TAKE ONE TABLET BY MOUTH DAILY Start [...] # 18 unknown unit, 1 Refill(s), eRx: [facility] #[id number], INHALE TWO PUFFS BY MOUTH EVERY 4 [...] cyst 03/06/15 S/P right knee arthroscopy/"clean up" 2013 Arthroscopic debridement of knee joint, right 04/24/10 H/O removal of cyst from chest Hysterectomy Social History Social History Type Response Smoking Status Former smoker; Type: Cigarettes; Tobacco use per day: 1 Pack ; Number of years: 35 Assessment and Plan Extracted from: Title: CPAP SUPPLY/SET PRESSURE Author: Madelin Cintron MINERALOGY TEACHER Date: 04/21 simplus:S, hdgr, S9 filters, slimline, S9 power cords Ms Conley comes in today to have her pressure set at 17cm per Dr Copeland' order after the sleep study. She has used cpap in the past, she brought her Resmed S9 Elite cpap and H5i humidifier. The device is assembled and reset to default settings, all data erased and then set for her current setting, [id number]. It appears to be in good condition,the pressure was checked and is accurate per manometer. We reviewed use and cleaning, her questions were answered.
--- OUTSIDE RECORDS SUMMARY | 2016-05-20 20:24 | XMS REPORT | Referral Summary ---
Author Author [facility] Organization [facility] Address Unknown Phone Unavailable Care Team Providers Care Rough Rounder Name Role Phone Kristal Li Primary Care Physician [phone] Encounter Date(s): 03/05/15 - 03/05/15 [facility], [facility] [address] [place], [place] [address] Discharge Diagnosis: Morbid obesity 09-FEB-2015 19:18:44<$> Discharge Diagnosis: ZURI (obstructive sleep apnea) Discharge Disposition: 01-Home or Self Care Attending Physician: Buster Copeland MD Admitting Physician: Buster Copeland MD Vital Signs Most recent to 1 oldest [Reference Range]: Peripheral Pulse 90 bpm Rate [60-100 bpm] (03/05/15 2:51 PM) Blood Pressure 124/80 mmHg [90-140/60-90 mmHg] (03/05/15 2:51 PM) SpO2 98 % (03/05/15 2:51 PM) Problem List Condition Effective Dates Status [...] QHS, # 60 tabs, 2 Refill(s), eRx: [facility] #[id number], TAKE ONE TABLET BY MOUTH TWICE A DAY Start Date: 07/10/14 Status: Ordered Excedrin Migraine 2 tabs, Oral, q6hr, Migraine Headache, 0 Refill(s) Start Date: 05/13/14 Status: Ordered hydrOXYzine See Instructions, 25mg during the day and 50mg at HS, 0 Refill(s) Start Date: 12/26/14 Status: Ordered ipratropium-albuterol 0.5 mg-2.5 mg/3 mLinhalation solution 3 mL, Inhalation, QID, Wheezing, # 90 mL, 1 Refill(s), Pharmacy: [facility] #[id number] Start Date: 11/22/13 Status: Ordered lisinopril 10 mg oral tablet See Instructions, TAKE ONE TABLET BY MOUTH DAILY, # 90 tabs, eRx: [facility] #[id number], TAKE ONE TABLET BY MOUTH DAILY Start Date: 02/03/15 Status: Ordered Mucinex DM tabs, Oral, q12hr, [...] # 18 unknown unit, 1 Refill(s), eRx: [facility] #[id number], INHALE TWO PUFFS BY MOUTH EVERY 4 [...]
--- OUTSIDE RECORDS SUMMARY | 2016-05-20 20:24 | XMS REPORT | Referral Summary ---
Author Author [facility] Organization [facility] Address Unknown Phone Unavailable Care Team Providers Care Smalltalk Developer Name Role Phone Kristal Li Primary Care Physician [phone] Encounter VC Date(s): 04/16/15 - 04/16/15 [facility], [facility] [address] [place], [place] [address] Discharge Disposition: 01-Home or Self Care Attending Physician: Buster Copeland MD Admitting Physician: Buster Copeland MD Vital Signs No [...] Refill(s), eRx: [facility] #[id number], TAKE ONE TABLET BY MOUTH TWICE A DAY Start Date: 07/10/14 Status: Ordered hydrOXYzine See Instructions, 25mg during the day and 50mg at HS, 0 Refill(s) Start Date: 12/26/14 Status: Ordered ipratropium-albuterol 0.5 mg-2.5 mg/3 mLinhalation solution 3 mL, Inhalation, QID, Wheezing, # 90 mL, 1 Refill(s), Pharmacy: [facility] #[id number] Start Date: 11/22/13 Status: Ordered lisinopril 10 mg oral tablet See Instructions, TAKE ONE TABLET BY MOUTH DAILY, # 90 tabs, eRx: [facility] #[id number], TAKE ONE TABLET BY MOUTH DAILY Start [...] Refill(s), eRx: [facility] #[id number], INHALE TWO PUFFS BY MOUTH EVERY 4 [...]
--- OUTSIDE RECORDS SUMMARY | 2016-05-20 20:24 | XMS REPORT | Referral Summary ---
Author Author [facility] Organization [facility] Address Unknown Phone Unavailable Care Team Providers Care Internet Marketing Strategist Name Role Phone Kristal Li Primary Care Physician [phone] Encounter VC Date(s): 01/12/16 - 01/12/16 [facility] [address] [place] [address] Discharge Disposition: 01-Home or Self Care Attending Physician: Sanchez Wright APRN Admitting Physician: Sanchez Wright APRN Vital Signs Most recent to 1 oldest [Reference Range]: Temperature Tympanic 37.8 degC [36.6-38.1 degC] (01/12/16 3:52 PM) Peripheral Pulse 95 bpm Rate [60-100 bpm] (01/12/16 3:52 PM) Respiratory Rate 20 br/min [14-20 br/min] (01/12/16 3:52 PM) Blood Pressure 114/80 mmHg [90-140/60-90 mmHg] (01/12/16 3:52 PM) SpO2 95 % (01/12/16 3:52 PM) Problem List Condition Effective Dates Status [...] 0 Refill(s) Start Date: 09/18/15 Status: Ordered Levaquin 500 mg oral tablet 500 mg 1 tabs, Oral, q24hr, X 7 days, # 7 tabs, 0 Refill(s), Pharmacy: [facility] #[id number], 1 tabs Oral q24hr,x7 days Start Date: 01/12/16 Stop Date: 01/19/16 Status: Ordered lisinopril 10 mg oral tablet See Instructions, TAKE ONE TABLET BY MOUTH DAILY, # 90 tabs, eRx: [facility] #[id number], TAKE ONE TABLET BY MOUTH DAILY Start Date: 08/04/15 Status: Ordered meloxicam 15 mg oral tablet See Instructions, TAKE ONE TABLET BY MOUTH DAILY, # 30 tabs, 0 Refill(s), Pharmacy: [facility] #[id number], TAKE ONE TABLET BY MOUTH DAILY Start Date: 10/30/15 Status: Ordered predniSONE 20 mg oral tablet See Instructions, 3 tabs PO for 3 days then 2 tabs PO for 3 days then 1 tab PO for 3 days with food, # 18 tabs, 0 Refill(s), Pharmacy: [facility] #[id number] , 3 tabs PO for 3 days then 2 tabs PO for 3 days then 1 tab PO for 3 days with food Start Date: 01/12/16 Stop Date: 01/19/16 Status: Ordered Tylenol Extra Strength 1 tabs, Oral, q6hr, as needed for pain, 0 Refill(s) Start Date: 02/12/14 Status: Ordered Ventolin HFA 90 mcg/inh inhalation aerosol See Instructions, INHALE TWO PUFFS BY MOUTH EVERY 4 TO 6 HOURS NEEDED, # 18 unknown unit, 1 Refill(s), eRx: [facility] #[id number], INHALE TWO PUFFS BY MOUTH EVERY 4 [...]
--- OUTSIDE RECORDS SUMMARY | 2016-05-20 20:24 | XMS REPORT | Summary of Care ---
Author Author Shae Alba M.D. Organization Unknown Address Unknown Phone Unavailable Care Team Providers Care Microbiology Coordinator Name Role Phone Michelle Alba M.D. Unavailable Unavailable No Assigned PCP-Pt Confirmed Unavailable Unavailable Unavailable Unavailable Functional Status Name Dates Details Functional status health issues are not documented Status: Name Dates Details Cognitive status health issues are not documented Status: Problems Name Dates Details Hypertension (401.9, I10) Status: Active Insomnia (780.52, G47.00) Status: Active Encounter related to worker's compensation claim (V70.3, Z02.6) Status: Active Contusion of left knee (924.11, S80.02XA) Status: Active Contusion of right knee (924.11, S80.01XA) Status: Active Medications Name Dates Details Depakote ER 500 MG Oral Tablet Extended Release 24 Hour TAKE 3 TABLET Daily * Start 23-Jan-2015 Active Lisinopril 10 MG Oral Tablet TAKE 1 TABLET DAILY. * Quantity: 30 Refills: 0 * Start 23-Jan-2015 Active TraZODone HCl - 100 MG Oral Tablet 1 tab at HS * Refills: 0 * Start 23-Jan-2015 Active Meloxicam 15 MG Oral Tablet TAKE ONE TABLET BY MOUTH ONCE A DAY NEEDED * Quantity: 1 Refills: 0 Shae Alba M.D. * Start 24-Nov-2015 Active 30 Tablet Bottle Allergies and Adverse Reactions Name Dates Details No Known Drug Allergies (Allergy) Status: Active Procedures Procedure Dates Details Procedures not documented Immunization Name Dates Details Immunizations not documented Social History Name Dates Details - Status: Name Dates Details Former smoker Vital Signs Date Test Result Details No Known Vitals to report Results Date Description Value Details Results not documented Plan of Care Name Dates Details Planned Observations Planned Goals not documented Interventions Provided Medication Changes* Meloxicam 15 MG Oral Tablet - Renew Instructions Name Dates Details Instructions not documented Encounters Appointment; Shae Alba M.D. Encounter Diagnosis: Problem not documented On 24-Nov-2015 14:30 Appointment; Shae Alba M.D. Encounter Diagnosis: Problem not documented On 08-Nov-2015 15:40 Appointment; Nilda Barr A.P.R.N. Encounter Diagnosis: Problem not documented On 23-Jan-2015 10:45
--- OUTSIDE RECORDS SUMMARY | 2016-05-20 20:24 | XMS REPORT | Referral Summary ---
Author Author [facility] Organization [facility] Address Unknown Phone Unavailable Care Team Providers Care Marketing Underwriter Name Role Phone Kristal Li Primary Care Physician [phone] Encounter VC Date(s): 04/05/16 - 04/05/16 [facility] [address] [place] [address] Discharge Diagnosis: Wheezy bronchitis Discharge Diagnosis: Asthma Discharge Disposition: 01-Home or Self Care Attending Physician: Dante Li MD Admitting Physician: Dante Li MD Vital Signs Most recent to 1 oldest [Reference Range]: Temperature Tympanic 37.2 degC [36.6-38.1 degC] (04/05/16 9:42 AM) Peripheral Pulse 89 bpm Rate [60-100 bpm] (04/05/16 9:42 AM) Respiratory Rate 18 br/min [14-20 br/min] (04/05/16 9:42 AM) Blood Pressure 116/64 mmHg [90-140/60-90 mmHg] (04/05/16 9:42 AM) SpO2 96 % (04/05/16 9:42 AM) Problem List Condition Effective Dates Status [...] BY MOUTH DAILY, # 90 tabs, eRx: [facility] #[id number], TAKE ONE TABLET BY MOUTH DAILY Start Date: 08/04/15 Status: Ordered meloxicam 15 mg oral tablet See Instructions, TAKE ONE TABLET BY MOUTH DAILY, # 30 tabs, 0 Refill(s), Pharmacy: [facility] #[id number], TAKE ONE TABLET BY MOUTH DAILY Start Date: 10/30/15 Status: Ordered Tylenol Extra Strength 1 tabs, Oral, q6hr, as needed for pain, 0 Refill(s) Start Date: 02/12/14 Status: Ordered Ventolin HFA 90 mcg/inh inhalation aerosol See Instructions, INHALE TWO PUFFS BY MOUTH EVERY 4 TO 6 HOURS NEEDED, # 1 Each, 1 Refill(s), Pharmacy: [facility] #[id number], INHALE TWO PUFFS BY MOUTH EVERY 4 TO 6 HOURS NEEDED Start Date: 04/05/16 Status: Ordered Results No data available for this section Immunizations Given and Recorded Vaccine Date Status Refusal Reason influenza virus vaccine, inactivated 11/18/14 Given influenza virus vaccine, inactivated1 11/22/13 Recorded influenza virus vaccine, live 12/07/12 Given influenza virus vaccine, live 11/26/11 Given tetanus-diphth toxoids (Td) adult/adol 08/20/04 Given 1Result Comment: [11/22/2013] SEE SCANNED NOTE Procedures [...] Assessment and Plan Extracted from: Title: Acute OV - Congestion Author: Dante Li MD Date: 04/05/16 Impression and Plan Diagnosis Wheezy bronchitis (QKE18-LD J40, Discharge, Medical). Asthma (XTQ44-IP J45.909, Discharge, Medical). Orders Orders (Selected) Prescriptions Prescribed Ventolin HFA 90 mcg/inh inhalation aerosol: See Instructions, INHALE TWO PUFFS BY MOUTH EVERY 4 TO 6 HOURS NEEDED, 1 Each, 1 Refill(s).
--- OUTSIDE RECORDS SUMMARY | 2016-05-20 20:24 | XMS REPORT | Continuity of Care Document ---
Author Author [facility] Address Unknown Phone Unavailable Care Team Providers Care Oyster Fisherman Name Role Phone Dante Li PP Unavailable Payers Payer name Insurance type Covered republican ID Authorization(s) Unknown Problems Condition Effective Dates (start - stop) Clinical Status Bronchitis, Acute - *Acute Asthma - *Fair Control Depression - *Acute Bronchitis, Acute - Acute ASTHMA, UNSPECIFIED TYPE, WITH (ACUTE) EXACERBATION - Acute Tobacco Abuse - *Chronic Overweight - *Chronic Tear of meniscus of left knee - *Acute Asthma - *Stable Dyspnea on exertion - Intermittent Depression - *Controlled Depression - *Controlled Tobacco Abuse - *Chronic Sprain of unspecified site of knee and leg - *Acute Left knee sprain - *Acute Left knee pain - *Acute Left ankle pain - Intermittent Elevated blood pressure reading without diagnosis of hypertension - *Acute Migraine - *Acute Left-sided nosebleed - *Acute Nausea alone - *Acute ASTHMA, UNSPECIFIED TYPE, WITH (ACUTE) EXACERBATION - Intermittent Hypertension, Benign - *Controlled Tobacco Abuse - *Chronic ASTHMA, UNSPECIFIED TYPE, WITH (ACUTE) EXACERBATION - *Acute Depression - *Chronic Migraine - *Controlled Tobacco Abuse - *Chronic Obesity - *Acute Knee pain, left - *Acute FH: diabetes mellitus - *Chronic Influenza Vaccine - ASTHMA NOS - Family History Family Member Diagnosis Age At Onset Status Father (Unknown) Cancer - lung Yes Father (Unknown) Cancer - unknown Yes Daughter (Unknown) Cancer - thyroid Yes Family h/o (Unknown) Cancer - testicular thyroid Yes Sister (Unknown) Diabetes Yes Social History Social History Element Description Quantity Unknown Allergies, Adverse Reactions, Alerts Substance Reaction Severity Status Unknown Medications Medication Instructions Dosage Effective Dates (start - stop) Status azithromycin 250 mg tablet take 2 tablet (500MG) by oral route every day for 1 day then 1 tablet (250 mg) by oral route once daily for 4 days 500 MG - No Longer Active Excedrin Migraine 250 mg-250 mg-65 mg tablet take 1 by Oral route every day 0 - Active Tylenol 325 mg tablet take 1 tablet (325MG) by oral route every 4 hours as needed 325 MG - Active inhale 1 by Nasal route every bedtime 0 - Active bupropion HCl SR 150 mg tablet,sustained-release take 1 tablet (150MG) by oral route 2 times every day 150 MG - Active Ventolin HFA 90 mcg/actuation aerosol inhaler inhale 2 puff by inhalation route every 4 - 6 hours as needed 0 - Active lisinopril 10 mg tablet take 1 tablet (10MG) by oral route every day 10 MG - Active Immunizations Vaccine Date Status Comments Flu (split) (3 yrs or older) completed Flu (split) (3 yrs or older) completed Td (adult) completed - Completed reason: source unspecified Results Test Name Date and Time Measure Units Reference Range Abnormal Flag Comments Unknown Vital Signs Date / Time: Height Weight Pulse Rate Blood Pressure Temperature /15:38:00 64.00 in 305.00 lbs 140/80 mm[Hg] 98.2 F Procedures Procedure Date Unknown Encounters Encounter Location Date Patient Visit [facility] Patient Visit [facility] Patient Visit [facility] Patient Visit [facility] Patient Visit [facility] Patient Visit [facility] Patient Visit [facility] Patient Visit [facility] Patient Visit [facility] Patient Visit [facility] Patient Visit [facility] Patient Visit [facility] Patient Visit [facility] Patient Visit [facility] Patient Visit [facility] Patient Visit [facility] Advance Directives Directive Effective Date Unknown
--- OUTSIDE RECORDS SUMMARY | 2016-05-20 20:24 | XMS REPORT | Summary of Care ---
Author Author Nilda Barr APRN Organization Unknown Address [address] [place] [id number] Phone Unavailable Care Team Providers Care Combat Systems Officer Name Role Phone No Assigned PCP-Pt Confirmed [...] % Status: Results Date Description Value Details 23-Jan-2015 13:00 XRay KNEE-Right Comments: Exam Date: 01/23/2015 11: 28Dictation Date: 01/23/2015 13:00 X KNEE COMP (MIN 4V) RT (Better) Plan of Care Planned Observations* Name Dates Details Planned Goals not documented Goal Instructions * Instructions not documented Encounters Appointment; Nilda Barr Encounter Diagnosis: Problem not documented On 23-Jan-2015 10:45
--- OUTSIDE RECORDS SUMMARY | 2016-05-20 20:24 | XMS REPORT | Continuity of Care Document ---
Author Author [facility] Organization [facility] Address Unknown Phone Unavailable Allergies Medications Problems Procedures Results Encounters ACCT No. Visit Date/Time Discharge Status Pt. Type Provider Facility Loc./Unit Complaint [id number] 03/26/2013 15:37:00 03/26/2013 23 :59:59 CLS Outpatient
--- OUTSIDE RECORDS SUMMARY | 2016-05-20 20:24 | XMS REPORT | Referral Summary ---
Author Author [facility] Organization [facility] Address Unknown Phone Unavailable Care Team Providers Care Retort Kiln Burner Name Role Phone DiegodonaldKristal Primary Care Physician [phone] Encounter VC Date(s): 03/19/15 - 03/19/15 [facility] [address] [place], [place] [address] Discharge Diagnosis: Orthopedic aftercare Discharge Disposition: 01-Home or Self Care Attending [...] QHS, # 60 tabs, 2 Refill(s), eRx: [facility] #[id number], TAKE ONE TABLET BY MOUTH TWICE A DAY Start Date: 07/10/14 Status: Ordered hydrOXYzine See Instructions, 25mg during the day and 50mg at HS, 0 Refill(s) Start Date: 12/26/14 Status: Ordered ipratropium-albuterol 0.5 mg-2.5 mg/3 mLinhalation solution 3 mL, Inhalation, QID, Wheezing, # 90 mL, 1 Refill(s), Pharmacy: [facility] #[id number] Start Date: 11/22/13 Status: Ordered lisinopril 10 mg oral tablet See Instructions, TAKE ONE TABLET BY MOUTH DAILY, # 90 tabs, eRx: [facility] #[id number], TAKE ONE TABLET BY MOUTH DAILY Start [...] # 18 unknown unit, 1 Refill(s), eRx: [facility] #[id number], INHALE TWO PUFFS BY MOUTH EVERY 4 [...] Visit Note Author: Jose Chambers MD Date: 03/19/15 Assessment/Plan No restrictions at this time. Patient given a full release for work. She will return if she has any development of swellingor redness around the incision. I explained to her that this should continue to get better over the next 2 weeks. Extracted from: Title: work note Author: Jimbo Raineslene Date: 03/19/[address] [facility] [address] Jet Chambers [address] [place] [address] To Whom It May Concern: Jeff Conley is currently under my medical care and was seen in the office on . May return to work 03-19-15 with full release and no restrictions. Sincerely, Dr Jose Chambers MD
--- OUTSIDE RECORDS SUMMARY | 2016-05-20 20:24 | XMS REPORT | Summary of Care ---
Author Author Shae Alba M.D. Organization Unknown Address Unknown Phone Unavailable Care Team Providers Care Angular Js Developer Name Role Phone Michelle Alba M.D. Unavailable [...] Right knee sprain (844.9, S83.91XA) Status: Active Fall (E888.9, W19.XXXA) Status: Active Contusion of left knee (924.11, S80.02XA) Status: Active Contusion of right knee (924.11, S80.01XA) Status: Active Encounter related to worker's compensation claim (V70.3, Z02.6) Status: Active Medications Name Dates Details Depakote [...] MOUTH ONCE A DAY NEEDED * Quantity: 90 Refills: 0 * Start 24-Nov-2015 Active Allergies and Adverse Reactions Name Dates [...] Details Planned Observations Planned Goals not documented Planned Encounters Appointment; Provider: Shae Alba M.D. On 05-Jan-2016 13:00 Instructions Name Dates Details Instructions not documented Encounters Appointment; Shae Alba M.D. Encounter Diagnosis: Problem not documented On 08-Nov-2015 15:40 Appointment; Nilda Barr A.P.R.N. Encounter Diagnosis: Problem not documented On 23-Jan-2015 10:45
--- OUTSIDE RECORDS SUMMARY | 2016-05-20 20:24 | XMS REPORT | Referral Summary ---
Author Author [facility] Organization [facility] Address Unknown Phone Unavailable Care Team Providers Care Retail Sales Lead Name Role Phone Kristal Li Primary Care Physician [phone] Encounter VC NOAH [id number] Date(s): 09/29/15 - 09/29/15 [facility] [address] [place] [address] Discharge Disposition: 01-Home or Self Care Attending Physician: Sanchez Wright APRN Admitting Physician: Sanchez Wright APRN Vital Signs Most recent to 1 oldest [Reference Range]: Peripheral Pulse 85 bpm Rate [60-100 bpm] (09/29/15 4:28 PM) Respiratory Rate 18 br/min [14-20 br/min] (09/29/15 4:28 PM) Blood Pressure 128/70 mmHg [90-140/60-90 mmHg] (09/29/15 4:28 PM) SpO2 98 % (09/29/15 4:28 PM) Problem List Condition Effective Dates Status [...] 90 tabs, eRx: [facility] #[id number], TAKE ONE TABLET BY MOUTH DAILY Start Date: 08/04/15 Status: Ordered meloxicam 15 mg oral tablet 15 mg 1 tabs, Oral, Daily, # 15 tabs, 0 Refill(s), Pharmacy: [facility] # [id number], 1 tabs Oral Daily Start Date: 09/29/15 Status: Ordered Tylenol Extra Strength 1 tabs, Oral, q6hr, as needed for pain, 0 Refill(s) Start Date: 02/12/14 Status: Ordered Ventolin HFA 90 mcg/inh inhalation aerosol See Instructions, INHALE TWO PUFFS BY MOUTH EVERY 4 TO 6 HOURS NEEDED, # 18 unknown unit, 1 Refill(s), eRx: [facility] #[id number], INHALE TWO PUFFS BY MOUTH EVERY 4 [...]
--- OUTSIDE RECORDS SUMMARY | 2016-05-20 20:24 | XMS REPORT | Referral Summary ---
Author Author [facility] Organization [facility] Address Unknown Phone Unavailable Care Team Providers Care Auto Leasing Manager Name Role Phone Kristal Li Primary Care Physician [phone] Encounter VC Date(s): 11/18/14 - 11/18/14 [facility] [address] [place] [address] Discharge Disposition: 01-Home or Self Care Attending [...] mg oral delayed release tablet See Instructions, TAKE ONE TABLET BY MOUTH TWICE A DAY, # 60 tabs, 2 Refill(s), eRx: [facility] #[id number], TAKE ONE TABLET BY MOUTH TWICE A DAY Start Date: 07/10/14 Status: Ordered Excedrin Migraine 2 tabs, Oral, q6hr, Migraine Headache, 0 Refill(s) Start Date: 05/13/14 Status: Ordered ipratropium-albuterol 0.5 mg-2.5 mg/3 mLinhalation solution 3 mL, Inhalation, QID, Wheezing, # 90 mL, 1 Refill(s), Pharmacy: [facility] #[id number] Start Date: 11/22/13 Status: Ordered lisinopril 10 mg oral tablet See Instructions, TAKE ONE TABLET BY MOUTH DAILY, # 90 tabs, eRx: [facility] #[id number], TAKE ONE TABLET BY MOUTH DAILY Start Date: 11/06/14 Status: Ordered Mucinex DM tabs, Oral, q12hr, SINUS CONGESTION, 0 Refill(s) Start Date: 02/12/14 Status: Ordered Tylenol Extra Strength mg, Oral, [...]
--- NOTE | 2016-05-20 20:30 | NUR ---
LOBBY PT IS SEATED IN LOBBY ACCOMPANIED BY HER DAUGHTER. PT REPORTS NAUSEA, HAS HAD NO VOMITTING SINCE ARRIVAL. PT HAS NO S/S OF ACUTE DISTRESS.
[2016-05-20 20:50] VITALS: TEMP 98.1; Ht 162.6 cm; Wt 152.2 kg
--- OUTSIDE RECORDS SUMMARY | 2016-05-20 21:13 | XMS REPORT | Continuity of Care Document ---
Author Author [facility] Organization [facility] Address Unknown Phone Unavailable Support Name Relationship Address Phone SHANNAN RIVAS MD Caregiver [address] [place] [address] [place] [address] LEONA GILMAN MD Caregiver [address] [address] Unavailable JEREMIAH ABBASI MD Caregiver [address] [place], [place] [id number] ELVIS CASTRO Next Of Kin [address] [place] [address] Insurance Providers Payer Name Policy Number Subscriber Name Relationship [facility] [id number] Jeff Conley 19 Self Advance Directives Directive [...] of your legs. 3.During office hours, call [phone] 4. After hours, please call [facility] at [phone], and have the machine operator packaging page your Surgeon IN THE EVENT OF [...] F (96.8 - 99.1) Temperature (Calculated Celsius) 36.41275 degrees C (36.0 - 37.3) Temperature Source [...] 04, 2013 10:05pm LAB TEST FORM REQUEST [id number] - Lymphocytes # (Auto) August 07, 2013 [...] Has specimen been collected/obtained? Y Urine Specific [place] August 08, 2013 12:40pm 1.020 - Has [...] procedures. Encounters Encounter Location Date/Time Discharged Inpatient [facility] 08/08/13 7:54pm Discharged Inpatient [facility] 08/04/13 12:56pm Registered Clinic [facility] 08/04/13 11:26am Recent Diagnosis Pneumonia Asthma History of hypertension COPD exacerbation COPD exacerbation Hx of migraine headaches Morbid obesity with BMI of 50.0-59.9, adult
--- OUTSIDE RECORDS SUMMARY | 2016-05-20 21:13 | XMS REPORT | Continuity of Care Document ---
Author Author [facility] Organization [facility] Address Unknown Phone Unavailable Support Name Relationship Address Phone SHANNAN RIVAS MD Caregiver [address] [place] [address] [place] [address] LEONA GILMAN MD Caregiver [address] [address] Unavailable JEREMIAH ABBASI MD Caregiver [address] [place], [place] [phone] ELVIS CASTRO Next Of Kin [address] [place] [address] Insurance Providers Payer Name Policy Number Subscriber Name Relationship [facility] [id number] Jeff Conley 19 Self Advance Directives Directive [...] F (96.8 - 99.1) Temperature (Calculated Celsius) 36.46601 degrees C (36.0 - 37.3) Temperature Source [...] 04, 2013 10:05pm LAB TEST FORM REQUEST [id number] - Lymphocytes # (Auto) August 07, 2013 [...] Has specimen been collected/obtained? Y Urine Specific [place] August 08, 2013 12:40pm 1.020 - Has [...] procedures. Encounters Encounter Location Date/Time Discharged Inpatient [facility] 08/08/13 7:54pm Discharged Inpatient [facility] 08/04/13 12:56pm Registered Clinic [facility] 08/04/13 11:26am Recent Diagnosis Pneumonia Asthma History of hypertension COPD exacerbation COPD exacerbation Hx of migraine headaches Morbid obesity with BMI of 50.0-59.9, adult
--- OUTSIDE RECORDS SUMMARY | 2016-05-20 21:14 | XMS REPORT | Continuity of Care Document ---
Author Author [facility] Organization [facility] Address Unknown Phone Unavailable Allergies Medications Problems Procedures Results Encounters ACCT No. Visit Date/Time Discharge Status Pt. Type Provider Facility Loc./Unit Complaint [id number] 03/26/2013 15:37:00 03/26/2013 23 :59:59 CLS Outpatient
--- NOTE | 2016-05-20 21:23 | ERPDOC ---
Departure Disposition Decision Date: May 20, 2016 Disposition Decision Time: 23:47 Disposition: 01 DISCHARGED HOME, SELF-CARE Impression Impression Impression: Primary Impression: Right upper quadrant abdominal pain Severity: Moderate Condition: Stable Seen By: Mid-level only Referrals: JEREMIAH ABBASI MD (Family) Patient Instructions: Abdominal Pain (ED) Problems/Meds/Labs Reviewed?: Yes Medications reviewed and manag: Yes Additional Instructions: Please take the [place] as needed for pain, the Zofran as needed for nausea, and the Cipro as prescribed. I do want you to contact your primary care providers' office tomorrow and schedule an appointment for follow up for US of your gallbladder. Avoid fatty and spicy foods. If return of severe pain or fever at all then return to ER for reevaluation. Follow up care ordered?: Yes Mental Status: Alert Scripts Ciprofloxacin HCl (Cipro) 500 Mg Tablet 500 MG PO Q12HR, #10 TAB 0 Refills Prov: REECE POZO APRN 05/20/16 Hydrocodone/Acetaminophen ([place] 5-325 Tablet) 5-325 Tablet 1 TAB PO Q6H Y for PAIN, #15 TAB 0 Refills Prov: REECE POZO APRN 05/20/16 Ondansetron (Zofran Odt) 4 Mg Tab.rapdis 4 MG PO Q8HR, #7 TAB 0 Refills Orally disintegrating tablet Prov: REECE POZO APRN 05/20/16 HPI - Abdominal Pain General Chief Complaint: Abdominal Pain Stated Complaint: FEVER,VOMITING,ABD PAIN Time Seen by Provider: 21:02 Source: patient History/Exam Limitations: no limitations HPI - Abdominal Pain Initial Comments She started having some trouble with vertigo about 1515 today. This didnt last very long. Then around 1615 she stared having some generalized abdominal pain that was sharp and crampy. She also stared having nausea/vomiting and chills. No fever or diarrhea. Has had some trouble with constipation but did have a small BM today. Pain has not let up over the last 4 hours so she decided to come to ER for evaluation. Has never had pain like this in the past. Occurred At: home Onset: Gradual Duration: other (Over the last 4 hours) Quality: cramping, sharpness Location: generalized abdomen Radiation: no radiation Activities at Onset: none Associated Symptoms: nausea/vomiting, DENIES: back pain, chest pain, diaphoresis, fatigue, fever/chills, headache, heartburn, rash, shortness of breath, swelling/mass in abdomen, syncope, weakness Hx of Similar Symptoms: No Allergies: Coded Allergies: No Known Allergies (Verified , 05/20/16) Past History Past Medical History Metabolic: hypertension Respiratory: COPD, pneumonia Neurological: migraines Surgical History Reproductive/: hysterectomy Family History Family PMH: FOUND: asthma, hypertension Vaccines Hx Influenza Vaccination: Yes (11/2012) Hx Pneumococcal Vaccination: No Review of Systems Constitutional Constitutional: appetite decrease, chills, DENIES: dizziness, fatigue, fever, weakness Cardiovascular Cardiac: DENIES: chest pain, orthopnea Rhythm/Rate: DENIES: irregular beat, palpitations Vascular: DENIES: pedal edema, unilateral swelling Pulmonary Respiratory: DENIES: cough, dyspnea, sputum, tachypnea GI Upper Abdomen: nausea, pain, vomiting Lower Abdomen: constipation, pain, DENIES: blood in stool, diarrhea Integumentary Skin: DENIES: rash Neurological General: DENIES: headache, numbness, tingling, weakness Physical Exam General General Nourishment: well nourished, well developed, appears stated age, no acute distress, adult General Body Habitus: well groomed Vitals and Pain First Documented Vital Signs Date Time Temp Pulse Resp B/P Pulse Ox O2 Delivery O2 Flow Rate FiO2 05/20/16 20:50 98.1 89 12 197/96 95 Room Air Weight: Kilograms: Height (feet): 5 Height (inches): 4.00 Triage Pain Scale: RN VS reviewed by Provider: Yes Normal Exams: Neck: Full range of motion, without adenopathy, JVD, bruits or thyromegaly Chest/Resp: Clear all mai, with good airflow, and symmetry bilaterally CV: Regular rate and rhythm, without murmur or gallop, Pulses 2+ all extremities, capillary refill, <2 seconds all ext., no pedal edema noted Abdomen: Bowel sounds positive, non-distended, no hepatosplenomegaly, masses or bruits noted Lymphatic: No lymphadenopathy, or lymphedema noted Integumentary: No rashes, hives, or bruising noted Neurologic: Patient is alert, and oriented Psychiatric: Patient exhibits, appropriate attention, emotion and affect Abdomen Inspection: NOT FOUND: distention Palpation: FOUND: soft, tender (TTP in the right upper and lower quadrants- moderately), voluntary guarding, NOT FOUND: involuntary guarding, rebound Differential Diagnoses Considering: Appendicitis, Biliary Colic, Bowel Obstruction, Cholecystitis, Hepatitis, Pancreatitis, UTI Progress Results/Orders Orders Procedure Category Date Status Time Cbc W/Auto LAB 05/20/16 Complete Diff-Reflex Manual Cmp - Comprehensive LAB 05/20/16 Complete Metabolic Lipase LAB 05/20/16 Complete Iv Lock (Ed Only) EDM 05/20/16 Transmitted 21:18 Normal Saline (Normal PHA 05/20/16 Complete Saline Iv) 21:30 Ondansetron Inj PHA 05/20/16 Complete (Zofran) 21:30 Morphine Sulfate PHA 05/20/16 Complete (Morphine) 21:30 Ct Abd/Pelvis CT 05/20/16 Taken W/Contrast Only 21:54 Iohexol (Omnipaque) PHA 05/20/16 Complete 22:00 Normal Saline (Ns) PHA 05/20/16 Complete 22:00 Saline Flush (Iv PHA 05/20/16 Complete Flush) 22:00 UA, LAB 05/20/16 Complete Dip&Micro(Complete) & 23:17 Urine Culture RAFFAELE 05/20/16 In Process 23:43 Hydrocodone/Apap PHA 05/21/16 In Process 5/325 Prepack ([place] 5 00:00 Ondansetron Odt PHA 05/21/16 In Process (Prepack) (Zofran Odt 00:00 Ciprofloxacin (Cipro) PHA 05/21/16 In Process 00:00 Lab Results Laboratory Tests Test 05/20/16 21:33 05/20/16 23:17 White Blood Count 15.3T/MM3 Red Blood Count 4.91M/MM3 Hemoglobin 13.4GM/DL Hematocrit 41.8% Mean Corpuscular Volume 85.1UM3 Mean Corpuscular Hemoglobin 27.3UUG Mean Corpuscular Hemoglobin Concent 32.1GM/DL RDW Standard Deviation 41.9FL Platelet Count 400T/MM3 Mean Platelet Volume 9.3UM3 Immature Granulocyte % (Auto) % Neutrophils (%) (Auto) % Lymphocytes (%) (Auto) % Monocytes (%) (Auto) % Eosinophils (%) (Auto) % Basophils (%) (Auto) % Absolute Immature Granulocyte (auto T/MM3 Absolute Neutrophils (auto) T/MM3 Absolute Lymphocytes (auto) T/MM3 Absolute Monocytes (auto) T/MM3 Absolute Eosinophils (auto) T/MM3 Absolute Basophils (auto) T/MM3 Neutrophils % (Manual) 82.0% Band Neutrophils % 3.0% Lymphocytes % (Manual) 14.0% Monocytes % (Manual) 1.0% Absolute Neutrophils (Manual) 12.5T/MM3 Band Neutrophils # 0.5T/MM3 Lymphocytes # (Manual) 2.1T/MM3 Monocytes # (Manual) 0.2T/MM3 Red Cell Morphology Comment Normal Turbidity < 20 Sodium Level 143MEQ/L Potassium Level 4.5MEQ/L Chloride Level 104MEQ/L Carbon Dioxide Level 25MEQ/L Anion Gap 14MEQ/L Blood Urea Nitrogen 17.0MG/DL Creatinine 0.6MG/DL Glomerular Filtration Rate Calc 106 BUN/Creatinine Ratio 28RATIO Glucose Level 132MG/DL Calculated Osmolality 279MOSM/KG Calcium Level 9.9MG/DL Total Bilirubin 0.40MG/DL Icterus Index < 2 Aspartate Amino Transf (AST/SGOT) 20U/L Alanine Aminotransferase (ALT/SGPT) 30U/L Alkaline Phosphatase 139U/L Total Protein 7.7G/DL Albumin 4.2G/DL Globulin 3.5G/DL Albumin/Globulin Ratio 1.2RATIO Lipase 57U/L Chemistry Specimen Hemolysis < 15 Urine Collection Type Cleancatch-midstream Urine Color Yellow Urine Turbidity Clear Urine pH 5.0 Urine Specific [place] 1.020 Urine Protein Trace Urine Glucose (UA) Negative Urine Ketones Negative Urine Blood Negative Urine Nitrite Positive Urine Bilirubin Negative Urine Urobilinogen 0.2EU/DL Urine Leukocyte Esterase Negative Urine RBC None seen/HPF Urine WBC 3-5/HPF Urine Squamous Epithelial Cells 0-5 Urine Bacteria 1+ Urine Mucus Present Urine Culture Indicated Cult reflexed &setup Medications Current ED Medications Sodium Chloride (Normal Saline IV) 1,000 ml @ 1,000 mls/hr Q1H ONCE IV Last administered on 05/20/16 21:35; Start 05/20/16 at 21:30; Stop 05/20/16 at 22:29; Status DC Ondansetron HCl (Zofran) 4 mg O ONCE IV Last administered on 05/20/16 21:35; Start 05/20/16 at 21:30; Stop 05/20/16 at 21:31; Status DC Morphine Sulfate (Morphine) 4 mg O ONCE IV Last administered on 05/20/16t 21:35 ; Start 05/20/16 at 21:30; Stop 05/20/16 at 21:31; Status DC Iohexol 1 bottle 1 bottle STK-MED ONCE .ROUTE ; Start 05/20/16 at 22:00; Stop 05/20/16 at 22:01; Status DC Sodium Chloride (NS) 100 ml @ As Directed STK-MED ONCE .ROUTE ; Start 05/20/16 at 22:00; Stop 05/20/16 at 22:01; Status DC Sodium Chloride (Iv Flush) 10 ml STK-MED ONCE .ROUTE ; Start 05/20/16 at 22:00; Stop 05/20/16 at 22:01; Status DC Acetaminophen/ Hydrocodone Bitart (NORCO 5 (PrePack)) 1 pack O ONCE SENT HOME ; Start 05/21/16 at 00:00; Stop 05/21/16 at 00:01 Ondansetron HCl (ZOFRAN ODT (PrePack)) 1 pack O ONCE SENT HOME ; Start 05/21/16 at 00:00; Stop 05/21/16 at 00:01 Ciprofloxacin (Cipro) 500 mg O ONCE PO ; Start 05/21/16 at 00:00; Stop 05/21/16 at 00:01 Progress Progress WBC is elevated at 15.3 with 82% neutrophils and 3% bands. CMP is normal aside from mildly elevated alk phos. Lipase is normal. She is feeling much better after pain medication given. CT scan does show possible pyelonephritis-UA is pending. Does also show hepatomegaly with mutiple gallstones without evidence of cholecystitis. UA does show nitrite positive with 1+ bacteria. Will go ahead and treat with Cipro, [place] for pain and Zofran for nausea. Will have her follow up with Dr Ortiz office tomorrow for US of gallbladder. Return to Er with fever or severe abdominal pain. CT CT : Reason for Exam: abdominal pain, leukocytosis CT: Abd/Pelvis IV contrast Interpretation: Abnormal (suspicion for pyelonephritis with heterogeneity/ decreased peripheral attenuation of left superior kidney. Multiple gallstones without CT evidence of cholecystitis. ) REECE POZO APRN May 20, 2016 21:23
[2016-05-20] MEDS ORDERED: ONDANSETRON 4mg/2ml INJECTION IV ONE (21:30)
[2016-05-20] MEDS ORDERED: NORMAL SALINE 1,000 ML IV ONE (21:30)
[2016-05-20] MEDS ORDERED: MORPHINE SULFATE 4 MG SYRINGE IV ONE (21:30)
[2016-05-20 21:40] LABS: HCT - HEMATOCRIT 41.8 % (36-46); HGB - HEMOGLOBIN 13.4 GM/DL (12-16); MEAN CORPUSCULAR HGB 27.3 UUG (26-34); MEAN CORPUSCULAR HGB CONC(MCHC 32.1 GM/DL (31-37); MEAN CORPUSCULAR VOLUME 85.1 UM3 (80-100); MEAN PLATELET VOLUME 9.3 UM3 (9.4-12.4); RED BLOOD COUNT 4.91 M/MM3 (4.00-5.20); WBC - WHITE BLOOD COUNT 15.3 T/MM3 (4.5-11.0)
[2016-05-20] MEDS ORDERED: MELO-267 (21:47)
[2016-05-20 21:50] LABS: BAND NEUTROPHILS # 0.5 T/MM3; LYMPHOCYTES # (MANUAL) 2.1 T/MM3 (1-4.8); MONOCYTES # (MANUAL) 0.2 T/MM3 (0-0.8); NEUTROPHILS #(MANUAL)-ABSOLUTE 12.5 T/MM3 (1.8-7.7); TOTAL CELLS COUNTED 100 %
[2016-05-20 21:51] LABS: ALBUMIN 4.2 G/DL (3.5-5.0); ALBUMIN/GLOBULIN RATIO 1.2 RATIO (1.1-2.2); ALKALINE PHOSPHATASE 139 U/L (38-126); ALT (SGPT) 30 U/L (9-52); ANION GAP 14 MEQ/L (5-15); AST (SGOT) 20 U/L (14-36); BUN/CREATININE RATIO 28 RATIO (6-26); CALCIUM 9.9 MG/DL (8.4-10.2); CHLORIDE 104 MEQ/L (98-107); CO2 - CARBON DIOXIDE 25 MEQ/L (22-30); CREATININE 0.6 MG/DL (0.7-1.2); GLOMERULAR FILTRATION RATE 106; GLUCOSE 132 MG/DL (65-110); LIPASE 57 U/L (23-300); POTASSIUM 4.5 MEQ/L (3.6-5); SODIUM 143 MEQ/L (134-144); TOTAL PROTEIN 7.7 G/DL (6.3-8.2)
[2016-05-20] MEDS ORDERED: NORMAL SALINE 100 ML ONE (22:00)
[2016-05-20] MEDS ORDERED: SALINE FLUSH 10ml SYRINGE ONE (22:00)
[2016-05-20] MEDS ORDERED: IOHEXOL 300 MG/ML 100ml INJECTION ONE (22:00)
--- NOTE | 2016-05-20 22:03 | NUR ---
TO CT PER CART. STATES PAIN IS GONE.
--- NOTE | 2016-05-20 22:20 | NUR ---
BACK FROM CT
--- NOTE | 2016-05-20 22:35 | NUR ---
REPORT GIVEN TO LAINA DACOSTA. CARE ASSUMED.
--- NOTE | 2016-05-20 23:10 | NUR ---
BR PT AMBULATES TO BR AT THIS TIME, URINE SAMPLE WILL BE OBTAINED FOR LAB.
[2016-05-20 23:36] LABS: BLOOD, URINE NEGATIVE (NEGATIVE); COLOR,URINE YELLOW (YELLOW); LEUKOCYTE ESTERASE ,URINE NEGATIVE (NEGATIVE); NITRITE,URINE POSITIVE (NEGATIVE); UROBILINOGEN,URINE 0.2 EU/DL (NORMAL)
[2016-05-20 23:43] LABS: BACTERIA,URINE 1+ (NEGATIVE); MUCUS,URINE PRESENT; RBC,URINE NONE SEEN /HPF (0-3); SQUAMOUS EPITHELIAL CELL,UR 0-5
[2016-05-20] MEDS ORDERED: ONDA4TAB7 PO (23:49)
[2016-05-20] MEDS ORDERED: HYDR-4246 PO (23:49)
[2016-05-20] MEDS ORDERED: CIPR-212 PO (23:49)
[2016-05-21] MEDS ORDERED: HYDROCODONE/APAP 5/325 (PrePack) SENT HOME ONE
[2016-05-21] MEDS ORDERED: ONDANSETRON ODT 4mg #3 (PrePack) SENT HOME ONE
[2016-05-21] MEDS ORDERED: CIPROFLOXACIN 500 MG TABLET PO ONE
[2016-05-21 00:18] VITALS: BP 153/75; PULSE 84; RESP 16; O2SAT 95
--- NOTE | 2016-05-21 00:18 | NUR ---
DEPART PT IS DISCHARGED AT THIS TIME, INSTRUCTIONS ARE REVIEWED AND UNDERSTANDNG IS VOICED. PT LEAVES AMBULATORY WITH HER DAUGHTER.
--- NOTE | 2016-05-21 08:36 | DI ---
Indication: ITS.REASON: abdominal pain PROCEDURE: CT ABD/PELVIS W/CONTRAST ONLY: Encounter: Initial Comparison: None Technique: Axial CT images were performed through the abdomen and pelvis after the administration of intravenous contrast. Coronal and sagittal two-dimensional reformats. Automated Exposure Control and Iterative Reconstruction dose reducing techniques were utilized. Contrast: Omnipaque 300 100 mL Findings: The lung bases are clear. Liver is unremarkable. Small sludge or stone debris in the neck of the gallbladder which is mildly distended. The spleen, pancreas and adrenal glands are within normal limits. Possible cyst in the inferior pole of the left kidney. There is some attenuation artifact causing artifactually decreased enhancement of the upper pole of the left kidney. The kidneys are otherwise normal. No abdominal or pelvic lymphadenopathy. Bladder is decompressed. Uterus is absent. No free fluid. No evidence of a bowel obstruction or acute diverticulitis. Colon is mostly decompressed. The appendix is normal. Bone windows are unremarkable. Impression: 1. No acute disease process seen in the abdomen or pelvis. 2. Cholelithiasis. There is a preliminary report by [facility]. .
== END 2016-05-21 00:18 | disposition home or self-care (01) ==
LOC: ED 20:19
DX: R10.11 Right upper quadrant pain (principal); R11.2 Nausea with vomiting, unspecified; R68.83 Chills (without fever)
CPT/HCPCS: 74177; 80053; 81001; 83690; 85025; 87086; 87088; 87186; 96361; 96374; 96375; 99284; J2405; J7030; J7050; Q9967

== ENCOUNTER 2016-06-17 08:43 | Day surgery (SDC) | payer OTHER ==
[2016-06-17] VITALS (28 sets, daily range): BP systolic 102–130; BP diastolic 53–73; PULSE 76–93; RESP 0–34; TEMP 97.6–98.4; O2SAT 90–100; Ht 162.6 cm; Wt 150.0 kg
[~2016-06-17] VITALS: Ht 162.6 cm; Wt 150.0 kg
[~2016-06-17 08:43] MED LIST changes: +ACET-2723 PO; -ACET-785 PO; +ALBU18HF2 ORAL INH; -ALBUTEROL INHALER; -AMOX500T10 PO; +CIPR-212 PO; -FLUT1DIS4 ORAL INH; +HYDR-4246 PO; +IBUP200C2 PO; +LIDOCAINE 1% (10mg/ml) 2ml SDV INJ ONE; -LORA10TA3 PO; +LR 1,000 ML IV PRN; +MELO-267 PO; +ONDA4TAB7 PO; -PRED-221 PO
--- OUTSIDE RECORDS SUMMARY | 2016-06-17 08:53 | XMS REPORT | Continuity of Care Document ---
Author Author [facility] Organization [facility] Address Unknown Phone Unavailable Support Name Relationship Address Phone SHANNAN RIVAS MD Caregiver [address] [place] [address] [place] [address] LEONA GILMAN MD Caregiver [address] [address] Unavailable JEREMIAH ABBASI MD Caregiver [address] [place], [place] [id number] ELVIS CASTRO Next Of Kin [address] [place] [address] Insurance Providers Payer Name Policy Number Subscriber Name Relationship [facility] [id number] Jeff Conley 18 Self Advance Directives Directive [...] of your legs. 3.During office hours, call [phone] 4. After hours, please call [facility] at [phone], and have the national van owner operator page your Surgeon IN THE EVENT [...] F (96.8 - 99.1) Temperature (Calculated Celsius) 36.15184 degrees C (36.0 - 37.3) Temperature Source [...] 04, 2013 10:05pm LAB TEST FORM REQUEST [id number] - Lymphocytes # (Auto) August 07, 2013 [...] Has specimen been collected/obtained? Y Urine Specific [place] August 08, 2013 12:40pm 1.020 - Has [...] procedures. Encounters Encounter Location Date/Time Discharged Inpatient [facility] 08/08/13 7:54pm Discharged Inpatient [facility] 08/04/13 12:56pm Registered Clinic [facility] 08/04/13 11:26am Recent Diagnosis Pneumonia Asthma History of hypertension COPD exacerbation COPD exacerbation Hx of migraine headaches Morbid obesity with BMI of 50.0-59.9, adult
--- OUTSIDE RECORDS SUMMARY | 2016-06-17 08:53 | XMS REPORT | Continuity of Care Document ---
Author Author [facility] Organization [facility] Address Unknown Phone Unavailable Support Name Relationship Address Phone JEREMIAH ABBASI MD Caregiver [address] [place] [address] Unavailable NAEEM VERDUGO MD Caregiver [address] [place] [address] Unavailable ELVIS CASTRO (FRIEND) Next Of Kin [address] [place] [address] Insurance Providers Guarantor Jeff Conley Address [address] [place] [address] CP Email DENIED 05-20-[address] [facility] Policy Number [id number] Subscriber's Name Jeff Conley Relationship 18 Self Group Number [id number] Advance Directives Directive Response Recorded Date/Time Advanced Directives Type None 08/07/13 11:51pm Ordered Resuscitation Status Full Code 08/04/13 7:45pm Chief Complaint and Reason for Visit Chief Complaint Abdominal Pain Reason for Visit Right upper quadrant abdominal pain Problems Active Problems Medical Problem Onset Date Status Asthma Unknown Acute COPD exacerbation Unknown Acute COPD exacerbation Unknown Acute History of hypertension Unknown Chronic Hx of migraine headaches Unknown Acute Morbid obesity with BMI of 50.0-59.9, adult Unknown Acute Obesity (BMI 35.0-39.9 without comorbidity) Unknown Acute Pneumonia Unknown Acute SIRS (systemic inflammatory response syndrome) Unknown Acute Past Problems Medical Problem Onset Date Right upper quadrant abdominal pain Unknown Medications Current Home Medications Medication Dose Units Route Directions Days Qty Instructions Start Date Acetaminophen (Tylenol) 325 Mg Tablet 325 Mg Oral As Needed 04/23 Albuterol Inhaler As Needed 10/12/09 Albuterol Sulfate/Ipratropium (Duoneb) 3 Ml Solution 3 Ml Aerosol Tx. Four Times Daily 30 Days 08/10/13 Aspirin/Acetaminophen/Caffeine (Excedrin Migraine Caplet) 1 Tab Tablet 1 Tab Oral As Needed 04/23/10 Ciprofloxacin Hcl (Cipro) 500 Mg Tablet 500 Mg Oral Every 12 Hours 10 Tablet 05/20/16 Diphenhydramine Hcl (Benadryl) 50 Mg Capsule 50 Mg Oral Bedtime 14 Days 08/10/13 Guaifenesin/D-Methorphan Hb (Mucinex Dm Tablet) 1 Tab.sr .12 H Tablet 1 Tab.sr Oral Twice A Day 10 Days 08/06/13 Hydrocodone/Acetaminophen ([place] 5-325 Tablet) 5-325 Tablet 1 Tab Oral Every 6 Hours as needed for Pain 15 Tablet 05/20/16 Ibuprofen 200 Mg Tablet 200 Mg Oral As Needed 04/23/10 Lisinopril 10 Mg Tablet 10 Mg Oral Daily 12/21/12 Meloxicam 15 Mg Tablet 30 05/20/16 Ondansetron (Zofran Odt) 4 Mg Tab.rapdis 4 Mg Oral Q8h @ 0100/0900/1700 7 Tablet Orally disintegrating tablet 05/20/16 Past Home Medications Medication Directions Ordered Status Acetaminophen/Dp-Hydram Hcl (Tylenol Pm Ex-Str Caplet) 1 Tab Tablet, 1 Tab Oral Bedtime 12/21/12 Discontinued Bupropion Hcl (Wellbutrin Sr) 150 Mg Tablet, 150 Mg Oral Twice A Day Discontinued Loratadine (Claritin Eqv) 10 Mg Tablet, 10 Mg Oral Before Breakfast 08/10/13 Discontinued Salmeterol Xinafoate/Fluticasone (Advair 250/50) 14 Puff/Disk Inhaler, 1 Puff Oral Inhalation Twice A Day 08/06/13 Discontinued Social History Social History Problem Response Recorded Date/Time Onset Date Status Tobacco abuse 08/04/2013 7:04pm Unknown Active Chewing Tobacco Status No 08/07/2013 8:10pm Not Applicable Not Applicable Hx Substance Use Y MARIJUANNA IN EARLY TEENS 05/20/2016 9:42pm Not Applicable Not Applicable Hx Alcohol Use Y RARELY 05/20/2016 9:42pm Not Applicable Not Applicable Has the pt used tobacco in the last 12 months Yes 08/07/2013 11:52pm Not Applicable Not Applicable Tobacco Usage smoke 08/08/2013 10:26am Not Applicable Not Applicable Query Response Start Date Stop Date Smoking Status Current every day smoker Hospital Discharge Instructions No hospital discharge instructions. Plan of Care Discharge Date 05/21/16 12:18am Disposition 01 DISCHARGED HOME, SELF-CARE Condition at Discharge Stable Instructions/Education Provided Abdominal Pain (ED) Prescriptions See Medication Section Referrals JEREMIAH ABBASI MD Address: [address] [place] [address] [phone] Additional Instructions/Education Please take the [place] as needed for pain, the Zofran as needed for nausea, and the Cipro as prescribed. I do want you to contact your primary care providers' office tomorrow and schedule an appointment for follow up for US of your gallbladder. Avoid fatty and spicy foods. If return of severe pain or fever at all then return to ER for reevaluation. Care Plan and Goals Physician Care Plan Problem:RUQ abdominal Pain Goal: Follow up with primary care provider Instructions: Take medications and follow care plan as discussed/written Functional Status No functional status results. Allergies, Adverse Reactions, Alerts No known allergies. Immunizations Query Response on File Recorded Date/Time Hx Influenza Vaccination Y 11/201208/07/13 11:52pm Hx Pneumococcal Vaccination No 08/07/13 11:52pm Hx Influenza Vaccination Y 11/201208/07/13 11:52pm Vital Signs Acute Vital Signs Vital Response Date/Time Temperature (Fahrenheit) 98.1 deg F (96.8 - 99.1) 05/20/2016 8:50pm Temperature (Calculated Celsius) 36.17568 degrees C (36.0 - 37.3) 05/20/2016 8:50pm Pulse Rate (adult) 84 bpm (60 - 100) 05/21/2016 12:18am Respiratory Rate 16 breaths/min (10 - 20) 05/21/2016 12:18am O2 Sat by Pulse Oximetry 95 % (90 - 100) 05/21/2016 12:18am Blood Pressure 153/75 mm Hg 05/21/2016 12:18am Height (Feet) 5 feet 05/20/2016 8:50pm Height (Inches) 4.00 inches 05/20/2016 8:50pm Weight (Kilograms) 152.200 kg 05/20/2016 8:50pm Body Mass Index (BMI) 57.0 05/20/2016 8:50pm Results Laboratory Results Test Name Result Units Flags Reference Collection Date/Time Result Date/ Time Comments White Blood Count 15.3 T/MM3 H 4.5-11.0 05/20/2016 9:33pm 05/20/2016 9: 45pm Red Blood Count 4.91 M/MM3 4.00-5.20 05/20/2016 9:33pm 05/20/2016 9: 45pm Hemoglobin 13.4 GM/DL 12-16 05/20/2016 9:33pm 05/20/2016 9:45pm Hematocrit 41.8 % 36-46 05/20/2016 9:33pm 05/20/2016 9:45pm Mean Corpuscular Volume 85.1 UM3 80-100 05/20/2016 9:33pm 05/20/2016 9: 45pm Mean Corpuscular Hemoglobin 27.3 UUG 26-34 05/20/2016 9:33pm 2016 9:45pm Mean Corpuscular Hemoglobin Concent 32.1 GM/DL 31-37 05/20/2016 9:33pm 05/20/2016 9:45pm RDW Standard Deviation 41.9 FL 36.9-50.2 05/20/2016 9:33pm 05/20/2016 9 :45pm Platelet Count 400 T/MM3 130-400 05/20/2016 9:33pm 05/20/2016 9:45pm Mean Platelet Volume 9.3 UM3 L 9.4-12.4 05/20/2016 9:33pm 05/20/2016 9: 45pm Neutrophils % (Manual) 82.0 % H 33-66 05/20/2016 9:33pm 05/20/2016 9: 51pm Band Neutrophils % 3.0 % 0-6 05/20/2016 9:33pm 05/20/2016 9:51pm Lymphocytes % (Manual) 14.0 % L 23-45 05/20/2016 9:33pm 05/20/2016 9: 51pm Monocytes % (Manual) 1.0 % 0-9.0 05/20/2016 9:33pm 05/20/2016 9:51pm Band Neutrophils # 0.5 T/MM3 05/20/2016 9:33pm 05/20/2016 9:51pm Absolute Neutrophils (Manual) 12.5 T/MM3 H 1.8-7.7 05/20/2016 9:33pm 07/2016 9:51pm Lymphocytes # (Manual) 2.1 T/MM3 1-4.8 05/20/2016 9:33pm 05/20/2016 9: 51pm Monocytes # (Manual) 0.2 T/MM3 0-0.8 05/20/2016 9:33pm 05/20/2016 9: 51pm Red Cell Morphology Comment NORMAL 05/20/2016 9:33pm 05/20/2016 9: 51pm Icterus Index < 2 0-7 05/20/2016 9:33pm 05/20/2016 9:51pm Chemistry Specimen Hemolysis < 15 0-25 05/20/2016 9:33pm 05/20/2016 9 :51pm 0-25: Specimen Exhibited No Hemolysis. Turbidity < 20 0-20 05/20/2016 9:33pm 05/20/2016 9:51pm Sodium Level 143 MEQ/L 134-144 05/20/2016 9:33pm 05/20/2016 9:51pm Potassium Level 4.5 MEQ/L 3.6-5 05/20/2016 9:33pm 05/20/2016 9:51pm Chloride Level 104 MEQ/L 98-107 05/20/2016 9:33pm 05/20/2016 9:51pm Carbon Dioxide Level 25 MEQ/L 22-30 05/20/2016 9:33pm 05/20/2016 9: 51pm Anion Gap 14 MEQ/L 5-15 05/20/2016 9:33pm 05/20/2016 9:51pm Blood Urea Nitrogen 17.0 MG/DL 7-17 05/20/2016 9:33pm 05/20/2016 9: 51pm Creatinine 0.6 MG/DL L 0.7-1.2 05/20/2016 9:33pm 05/20/2016 9:51pm BUN/Creatinine Ratio 28 RATIO H 6-26 05/20/2016 9:33pm 05/20/2016 9: 51pm Glomerular Filtration Rate Calc 106 05/20/2016 9:3305/20/2016 9: 51pm Glucose Level 132 MG/DL H 65-110 05/20/2016 9:33pm 05/20/2016 9:51pm Calculated Osmolality 279 MOSM/KG 261-280 05/20/2016 9:33pm 05/20/2016 9:51pm Calcium Level 9.9 MG/DL 8.4-10.2 05/20/2016 9:33pm 05/20/2016 9:51pm Total Bilirubin 0.40 MG/DL 0.20-1.30 05/20/2016 9:33pm 05/20/2016 9: 51pm Alkaline Phosphatase 139 U/L H 38-126 05/20/2016 9:33pm 05/20/2016 9: 51pm Total Protein 7.7 G/DL 6.3-8.2 05/20/2016 9:33pm 05/20/2016 9:51pm Albumin 4.2 G/DL 3.5-5.0 05/20/2016 9:33pm 05/20/2016 9:51pm Globulin 3.5 G/DL 2.4-3.6 05/20/2016 9:33pm 05/20/2016 9:51pm Albumin/Globulin Ratio 1.2 RATIO 1.1-2.2 05/20/2016 9:33pm 05/20/2016 9 :51pm Aspartate Amino Transf (AST/SGOT) 20 U/L 14-36 05/20/2016 9:33pm 2016 9:51pm Alanine Aminotransferase (ALT/SGPT) 30 U/L 9-52 05/20/2016 9:33pm 05/20 9:51pm Lipase 57 U/L 23-300 05/20/2016 9:33pm 05/20/2016 9:51pm Urine Collection Type CLEANCATCH-MIDSTREAM 05/20/2016 11:17pm 05/20 11:36pm Urine Color YELLOW YELLOW 05/20/2016 11:17pm 05/20/2016 11:36pm Urine Turbidity CLEAR CLEAR 05/20/2016 11:17pm 05/20/2016 11:36pm Urine Specific [place] 1.020 1.015-1.025 05/20/2016 11:17pm 2016 11:36pm Urine pH 5.0 5.0-8.0 05/20/2016 11:17pm 05/20/2016 11:36pm Urine Leukocyte Esterase NEGATIVE NEGATIVE 05/20/2016 11:17pm 2016 11:36pm Urine Nitrite POSITIVE A NEGATIVE 05/20/2016 11:17pm 05/20/2016 11: 36pm Urine Protein TRACE A NEGATIVE 05/20/2016 11:17pm 05/20/2016 11:36pm Urine Glucose (UA) NEGATIVE NEGATIVE 05/20/2016 11:17pm 05/20/2016 11 :36pm Urine Ketones NEGATIVE NEGATIVE 05/20/2016 11:17pm 05/20/2016 11: 36pm Urine Urobilinogen 0.2 EU/DL NORMAL 05/20/2016 11:17pm 05/20/2016 11: 36pm Urine Bilirubin NEGATIVE NEGATIVE 05/20/2016 11:17pm 05/20/2016 11: 36pm Urine Blood NEGATIVE NEGATIVE 05/20/2016 11:17pm 05/20/2016 11:36pm Urine WBC 3-5 /HPF 0-5 05/20/2016 11:17pm 05/20/2016 11:43pm Urine RBC NONE SEEN /HPF 0-3 05/20/2016 11:17pm 05/20/2016 11:43pm Urine Squamous Epithelial Cells 0-5 05/20/2016 11:17pm 05/20/2016 11:43pm Urine Bacteria 1+ H NEGATIVE 05/20/2016 11:17pm 05/20/2016 11:43pm Urine Mucus PRESENT 05/20/2016 11:17pm 05/20/2016 11:43pm Urine Culture Indicated CULT REFLEXED &SETUP 05/20/2016 11:17pm 07/2016 11:43pm Microbiology Results Procedure Source Organism/Result Collection Date/Time Result Date/Time Result Status Urine Culture Urine, Clean Catch-Midstream CULTURE INITIATED - RESULTS PENDING 05/20/2016 11:43pm 05/20/2016 11:44pm Preliminary Procedures No known history of procedures. Encounters Encounter Location Arrival/Admit Date Discharge/Depart Date Attending Provider Departed Emergency Room [facility] 05/20/16 8:19pm 05/21/16 12: 18am NAEEM VERDUGO MD Recent Diagnosis
--- OUTSIDE RECORDS SUMMARY | 2016-06-17 08:54 | XMS REPORT | Continuity of Care Document ---
Author Author [facility] Organization [facility] Address Unknown Phone Unavailable Support Name Relationship Address Phone SHANNAN RIVAS MD Caregiver [address] [place] [address] [place] [address] LEONA GILMAN MD Caregiver [address] [address] Unavailable JEREMIAH ABBASI MD Caregiver [address] [place], [place] [id number] ELVIS CASTRO Next Of Kin [address] [place] [address] Insurance Providers Payer Name Policy Number Subscriber Name Relationship [facility] [id number] Jeff Conley 19 Self Advance Directives Directive [...] F (96.8 - 99.1) Temperature (Calculated Celsius) [phone] degrees C (36.0 - 37.3) Temperature Source [...] 04, 2013 10:05pm LAB TEST FORM REQUEST [id number] - Lymphocytes # (Auto) August 07, 2013 [...] Has specimen been collected/obtained? Y Urine Specific [place] August 08, 2013 12:40pm 1.020 - Has [...] procedures. Encounters Encounter Location Date/Time Discharged Inpatient [facility] 08/08/13 7:54pm Discharged Inpatient [facility] 08/04/13 12:56pm Registered Clinic [facility] 08/04/13 11:26am Recent Diagnosis Pneumonia Asthma History of hypertension COPD exacerbation COPD exacerbation Hx of migraine headaches Morbid obesity with BMI of 50.0-59.9, adult
--- OUTSIDE RECORDS SUMMARY | 2016-06-17 08:55 | XMS REPORT | Continuity of Care Document ---
Author Author [facility] Organization [facility] Address Unknown Phone Unavailable Allergies Medications Problems Procedures Results Encounters ACCT No. Visit Date/Time Discharge Status Pt. Type Provider Facility Loc./Unit Complaint [id number] 03/26/2013 15:37:00 03/26/2013 23 :59:59 CLS Outpatient
[2016-06-17 09:30] LABS: BASOPHILS # (AUTO) 0.1 T/MM3 (0-0.2); BASOPHILS % (AUTO) 0.4 % (0-2); EOSINOPHILS # (AUTO) 0.3 T/MM3 (0-0.5); EOSINOPHILS % (AUTO) 2.3 % (0-4); HCT - HEMATOCRIT 43.4 % (36-46); HGB - HEMOGLOBIN 13.8 GM/DL (12-16); IMMATURE GRANULOCYTE # (AUTO) 0.03 T/MM3 (0.00-0.03); IMMATURE GRANULOCYTE % (AUTO) 0.2 % (0.0-0.5); LYMPHOCYTES # (AUTO) 3.7 T/MM3 (1-4.8); LYMPHOCYTES % (AUTO) 28.9 % (23-45); MEAN CORPUSCULAR HGB CONC(MCHC 31.8 GM/DL (31-37); MEAN CORPUSCULAR VOLUME 84.8 UM3 (80-100); MEAN PLATELET VOLUME 9.5 UM3 (9.4-12.4); MONOCYTES # (AUTO) 0.6 T/MM3 (0-0.8); MONOCYTES % (AUTO) 4.4 % (0-9.0); NEUTROPHILS #(AUTO)-ABSOLUTE 8.2 T/MM3 (1.8-7.7); NEUTROPHILS % (AUTO) 63.8 % (33-66); RED BLOOD COUNT 5.12 M/MM3 (4.00-5.20); WBC - WHITE BLOOD COUNT 12.8 T/MM3 (4.5-11.0)
--- NOTE | 2016-06-17 10:09 | ANESPREOP ---
Anesthesia Record Date and Time DATE: 06/17/16 TIME: 10:06 Proposed Surgical Procedure ROBOTIC [employer] NPO since: 1900 Allergies: Coded Allergies: Latex, Natural Rubber (Unverified Allergy, Unknown, 06/17/16) latex (Unverified Allergy, Unknown, 06/17/16) Ht/Wt/BMI Height: 5 ' 4.00 " Weight: 150.000 kg BMI: 56.8 kg/m2 Vital Signs Date Time Temp Pulse Resp B/P Pulse Ox O2 Delivery O2 Flow Rate FiO2 06/17/16 09:32 98.4 82 17 120/73 95 Room Air Medications Inpatient Medications Current Medications Medications (Trade) Dose Ordered Sig/Danielle Start Time Stop Time Status Last Admin Dose Admin Lactated Ringer's (Lactated Ringers) 1,000 ml @ 50 mls/hr Q20H PRN 06/17/16 07:00 06/17/16 09:47 50 MLS/HR Acetaminophen (Tylenol Extra Strength) 500 Mg Tablet, 1-2 TAB PO Q6H PRN for PAIN/FEVER, (Reported) Last Taken: on 06/10/16 Albuterol Sulfate (Ventolin HFA 90 mcg/actuation) 18 Gm Hfa.aer.ad, 1 PUFF ORAL INH Q4H PRN for SHORTNESS OF AIR/WHEEZING, ( Reported) Last Taken: on 06/16/16 0800 Albuterol Sulfate/Ipratropium (Duoneb) 3 Ml Solution, 3 ML AEROSOL QID Last Taken: on 06/18/15 Aspirin/Acetaminophen/Caffeine (Excedrin Migraine Caplet) 1 Tab Tablet, 1 TAB PO PRN, (Reported) Last Taken: on 06/03/16 0800 Diphenhydramine Hcl (Benadryl) 50 Mg Capsule, 50 MG PO HS Last Taken: on Unknown Date & Time Guaifenesin/D-Methorphan Hb (Mucinex Dm Tablet) 1 Tab.sr .12 H Tablet, 1 TAB.SR PO BID Last Taken: on Unknown Date & Time Hydrocodone/Acetaminophen ([place] 5-325 Tablet) 5-325 Tablet, 1 TAB PO Q6H PRN for PAIN Last Taken: on 06/03/16 0800 Ibuprofen (Ibuprofen) 200 Mg Tablet, 200 MG PO PRN, (Reported) Last Taken: on 06/03/16 0800 Lisinopril (Lisinopril) 10 Mg Tablet, 10 MG PO DAILY, (Reported) Last Taken: on 06/15/16 0800 Meloxicam (Meloxicam) 15 Mg Tablet, 1 TAB PO DAILY, (Reported) Last Taken: on 05/27/16 0800 Discontinued Medications Acetaminophen (Tylenol) 325 Mg Tablet, 325 MG PO PRN, (Reported) Currently on Beta Karmen: No Medical/Surgical History Anesthesia PMH: Reports: *Dyspnea (WITH ACTIVITY), *Hypertension, Anesthesia Reactions (ASTHMA ATTACK UPON WAKING), Arthritis (GENERALIZED), Asthma, Headaches (MIGRAINES OR SEVERE TENSION HEADACHES), Obesity (super morbidly), Pneumonia (SEP 2009), Sleep Apnea (HAS C-PAP - DOES NOT HAVE WITH HER TODAY) Smoking Status: Current every day smoker Has pt. smoked today?: No # of Packs per Day: 1 # of Years: 35 Use Chewing Tobacco?: No Second Hand Exposure: No Substance Use Type: does not use Alcohol Intake: none Past Surgical History Orthopedic Surgeries: Yes - BILATERAL KNEE SCOPE, L GANGLION CYST REMOVAL WRIST Abdominal Surgeries: No Genitourinary Surgeries: No Cardiac Surgeries: No Endocrine Surgeries: No Reproductive Surgeries: Yes - HYST Neurological Surgeries: No Ear Surgeries: No Nose Surgeries: No Throat Surgeries: No Other Surgeries: Yes - CYST SIZE OF GRAPEFRUIT REMOVED FROM INSIDE OF CHEST, C- SCOPE Anesthesia Adverse Reactions: FOUND other (has asthma attack when waking up) Family Hx of Anesthesia Advers: none Hx of Motion Sickness: No Pertinent Findings Laboratory Tests 06/17/16 09:17 Physical Exam Respiratory: Bilat breath sounds equal, Lungs clear Cardiovascular: FOUND Regular rate, rhythm Airway Assessment Mallampati Score: IV TMD: 3 Fingerbreadths Neck Extension: Fair Overall Assessment: May Be Diff Intubation (morbidly obese, short thick neck, small mouth opening, and MP 4) ASA: 4 Plan Anesthesia Plan: GETA Discussion Discussed risks/options/alternatives of anesthesia and questions answered. Patient consents. Nursing pain assessment noted. Present: Family Member Attestation Statement Prior to the delivery of any anesthetic medication, I examined the patient, developed the plan, obtained the patient's consent and discussed the risk and benefits of the procedure with the patient/guardian. LISBET MORALES CRNA June 17, 2016 10:09
[2016-06-17] MEDS ORDERED: BUPIVACAINE 0.25%/EPI 1:200,000 30ml SDV ONE (10:20)
[2016-06-17] MEDS ORDERED: ERTAPENEM 1 G in NORMAL SALINE 100 ML IV ONE (10:45)
[2016-06-17] MEDS ORDERED: PROPOFOL 200mg 20 ML IV ONE (11:33)
[2016-06-17] MEDS ORDERED: SALINE FLUSH 10ml SYRINGE ONE (11:34)
[2016-06-17] MEDS ORDERED: FENTANYL 250mcg/5ml INJECTION ONE (11:36)
[2016-06-17] MEDS ORDERED: GLYCOPYRROLATE 0.4mg/2ml INJECTION ONE ×2 (12:25→12:46)
[2016-06-17] MEDS ORDERED: NEOSTIGMINE 10mg/10ml INJECTION ONE ×2 (12:25→12:46)
[2016-06-17] MEDS ORDERED: ONDANSETRON 4mg/2ml INJECTION ONE ×2 (12:25→12:46)
[2016-06-17] MEDS ORDERED: DEXAMETHASONE 4mg/ml - 1ml INJECTION ONE ×2 (12:25→12:46)
[2016-06-17] MEDS ORDERED: METOCLOPRAMIDE 10mg/2ml INJECTION IV PRN (13:15)
[2016-06-17] MEDS ORDERED: ONDANSETRON 4mg/2ml INJECTION IV PRN ×2 (13:15→14:00)
[2016-06-17] MEDS ORDERED: ALBUTEROL INH.SOLN. 2.5mg/3ml (0.083%) Neb. AEROSOL ONE (13:15)
[2016-06-17] MEDS ORDERED: LR 1,000 ML IV SCH (13:19)
--- NOTE | 2016-06-17 13:26 | GSPOSTPN ---
Procedure Procedure Date: June 17, 2016 Surgeon: Matthew Assisting Surgeon: Pilo Camacho Anesthesia: Local, GETA ASA: 4 Procedure Robotic assisted laparoscopic cholecystectomy with FireFly imaging. GS Diagnosis Postop Diagnosis Symptomatic cholelithiasis Complications Complications Estimated Blood Loss See Anesthesia Record. Vital Signs See Anesthesia and PACU record. MARLYS CAMACHO TRANSACTIONAL ATTORNEY June 17, 2016 13:25
[2016-06-17] MEDS ORDERED: KETOROLAC 30mg/ml INJECTION IV PRN (13:30)
[2016-06-17] MEDS ORDERED: IBUPROFEN 400 MG TABLET PO PRN (13:30)
[2016-06-17] MEDS ORDERED: HYDROCODONE/APAP 5 mg/325 mg TABLET PO PRN (13:30)
[2016-06-17] MEDS ORDERED: ALBUTEROL INH.SOLN. 2.5mg/3ml (0.083%) Neb. AEROSOL PRN (13:30)
[2016-06-17] MEDS ORDERED: MORPHINE SULFATE 4 MG SYRINGE IV PRN (13:30)
[2016-06-17] MEDS ORDERED: POLY17PO6 PO (13:32)
[2016-06-17] MEDS ORDERED: HYDR-4246 PO (13:32)
[2016-06-17] MEDS: HYDROMORPHONE 2mg/ml INJECTION IV PRN ×3 (13:40→13:57)
--- NOTE | 2016-06-17 13:49 | ANESPO ---
Post-Op Note Date 06/17/16 Time: 13:48 Status Pt Participated in Evaluation: Pt participated in person Vital Signs Date Time Temp Pulse Resp B/P Pulse Ox O2 Delivery O2 Flow Rate FiO2 06/17/16 13:43 18 06/17/16 13:36 80 06/17/16 13:36 Nasal Cannula 1.00 06/17/16 13:36 99 06/17/16 09:32 98.4 120/73 Respiratory Function: Airway patent Cardiovascular Function: Regular pulse Mental Status: Alert/oriented Pain Level Intensity: 4 Hydration: IV infusing Complications during Recovery None apparent Follow-Up Instructions Instructions Per Surgeon Additional Information had dyspnea initially in PACU while waking up- albuterol tx given. much improved after treatment MAL CONKLIN CRNA June 17, 2016 13:49
--- NOTE | 2016-06-17 14:25 | NUR ---
ARRIVAL TO FLOOR PT ARRIVED TO THE FLOOR AT THIS TIME, PT ABLE TO TRANSFER SELF FROM THE CART TO THE BED WITH MINIMAL ASSIST. PT POST OP VITAL SIGNS STARTED AT THIS TIME. PT IS ON RA. WILL CONTINUE TO MONITOR.
--- NOTE | 2016-06-17 14:34 | OPNOTEF ---
DATE OF SERVICE 06/17/2016 SURGEON Buster Castro MD MARKET DEVELOPER Pilo Camacho APRN PREOPERATIVE DIAGNOSIS Symptomatic cholelithiasis. POSTOPERATIVE DIAGNOSIS Symptomatic cholelithiasis. PROCEDURE Robotic-assisted laparoscopic cholecystectomy with use of Firefly Fluorescence Biliary Imaging. ANESTHESIA General endotracheal. EBL/FLUIDS Please see chart. BRIEF HISTORY/INDICATIONS Mrs. Lemons is a 50-year-old female who previously had presented to my office as a result of history of severe epigastric/right upper quadrant abdominal pain that brought her into the emergency room. During her ER visit she did have a CT scan that revealed cholelithiasis/sludge within the neck of the gallbladder. It was felt that her abdominal pain was indeed a result of her "gallbladder"/symptomatic cholelithiasis. It was therefore recommended that she undergo surgical intervention. Patient presents today to undergo cholecystectomy. For completeness please refer to notes included in the patient's chart. FINDINGS Upon laparoscopy the liver edge was smooth without nodularities. The gallbladder wall was found to be somewhat thickened in nature consistent with prior inflammation. Peritoneal surfaces and omentum which was visualized was within normal limits. Standard cholecystectomy was able be completed without incident. DESCRIPTION OF PROCEDURE After informed consent was obtained the patient was brought to the operative suite and placed on the table in supine fashion. The abdomen was prepped and draped in sterile fashion. Formal timeout was then completed. 0.25% Marcaine with epinephrine was injected just beneath the level of the umbilicus. A 2-cm curved incision was then made through the area of analgesia. Dissection was carried down to the deep subcuticular tissues to the underlying fascia. Fascia was then grasped with two Sybil clamps and retracted anteriorly. A 1-cm incision was made between the two Sybil clamps. Hemostat was then introduced into the fascial incision and gently spread. U-stitch was placed with 0-Vicryl. A 12-mm port was then placed through the fascial opening and pneumoperitoneum was established to a patient pressure of 15 mmHg utilizing carbon dioxide. Two additional 8-mm ports were then placed within the left upper quadrant and right lower quadrant under direct visualization and preinjected with 0.25% Marcaine with epinephrine. Lastly, an additional 5-mm was placed along the right lateral abdominal wall. Once again, this was placed under direct visualization and preinjected with 0.25% Marcaine. With the patient in a reverse Trendelenburg position and slightly rotated towards her left, the robot was docked overlying the patient's right shoulder at a 45-degree angle. Next, I had my head start assistant teacher then grasp the fundal portion of the gallbladder and retract it in a cephalad fashion. I then grasped the infundibular portion of the gallbladder and retracted it in a lateral and slightly caudad fashion to provide exposure to the triangle of Calot. Dissection was begun high upon the infundibulum of the gallbladder with the use of electrocautery. At no point in time was electrocautery performed adjustment to a hollow viscus such as the transverse colon, duodenum or stomach. Dissection was continued until the critical view of safety had been obtained and the only remaining structures coming forth from the infundibulum of the gallbladder were that of the cystic duct and cystic artery. Firefly biliary imaging was performed during the procedure which did aid in the identification of the cystic duct. Once the posterior aspect of the infundibulum had been completely freed from the liver bed fossa and the only remaining structures coming forth from the infundibulum of the gallbladder were that of the cystic duct and cystic artery, I elected to proceed with division of the cystic artery and cystic duct at this time. A single Hem-o-angelica clip was placed upon the cystic artery upon the mid portion of the infundibulum of the gallbladder. An additional Hem-o-angelica clip was placed proximally. Additionally, a Hem-o-angelica clip was placed upon the infundibular portion of the gallbladder near the cystic duct junction. Next, an additional Hem-o-angelica clip was placed just proximally to the cystic duct/infundibular junction upon the cystic duct itself. The cystic artery and cystic duct were then divided between the two clips. The gallbladder was then divided off the liver bed fossa with use of electrocautery and removed via the infraumbilical port site. The robot was undocked prior to removal of the gallbladder from the infraumbilical port site. Utilizing a handheld suction and holding the laparoscope, the gallbladder fossa was irrigated and all irrigant was suctioned until clear. The gallbladder fossa was completely hemostatic in nature. The .previously placed Hem-o-angelica clips remained to be intact. Once all irrigant was suctioned until clear, attention was then directed towards removal of the ports. Each port was removed under direct visualization. Lastly, the pneumoperitoneum was released and the camera port was then removed. The previously placed U-stitch at the infraumbilical port was then secured, imbricating the fascia. All skin incisions were closed in a subcuticular fashion with 4-0 Monocryl. Dermabond was applied. Patient is in the process of awakening from her anesthetic and will be sent back to the recovery room once deemed in stable condition. Additionally, it should be noted that Pilo Camacho APRN, was present throughout the entire case and played a pivotal role in providing assistance and exposure during the course of the procedure. LEYDA
[2016-06-17] MEDS ORDERED: ALBUTEROL/IPRATROPIUM INHAL. 2.5mg-0.5mg/3ml Neb. AEROSOL SCH (17:00)
--- NOTE | 2016-06-17 18:40 | NUR ---
DISCHARGE NURSING NOTE PT WAS DISCHARGED FROM THE HOSPITAL AT THIS TIME. PT ALERT AND ORIENTED X3, VITAL SIGNS STABLE, ON RA. THIS RN WENT OVER DISCHARGE PAPERWORK WITH THE PT INCLUDING DISCHARGE DIET, ACTIVITY, MEDICATION, INCISION CARE, AND FOLLOW-UP APPOINTMENTS. THE PT VERBALIZED UNDERSTANDING. NO CONCERNS NOTED. PT'S IV SITE DC'D, BAND REMOVED. AMBULATORY THROUGH THE MAIN ENTRANCE WITH DAUGHTER. Addendum: 06/17/16 at 2008 by SAGE THAKUR RN THIS RN CONTACTED DR. ZHENG PRIOR TO DISCHARGING THE PT WITH AN UPDATE ON THE PT STATUS. ALSO RECEIVED INSTRUCTION TO PLACE A GAUZE 4X4 OVER UMBILICAL SITE THAT WAS DRAINING A BIT ON PT GOWN. NO OTHER CONCERNS NOTED.
[2016-06-18] MEDS ORDERED: LISINOPRIL 10 MG TABLET PO SCH (09:00)
== END 2016-06-17 18:40 | disposition home or self-care (01) ==
LOC: SCU 08:43 → SRG 08:46 → SCU 18:40
PROVIDERS: ATTEND Surgery
DX: K80.00 Calculus of gallbladder with acute cholecystitis without obstruction (principal); I10 Essential (primary) hypertension; J45.909 Unspecified asthma, uncomplicated; J44.9 Chronic obstructive pulmonary disease, unspecified; G43.909 Migraine, unspecified, not intractable, without status migrainosus; F41.9 Anxiety disorder, unspecified; G47.30 Sleep apnea, unspecified; E66.01 Morbid (severe) obesity due to excess calories; Z79.899 Other long term (current) drug therapy; Z79.1 Long term (current) use of non-steroidal anti-inflammatories (NSAID); Z99.81 Dependence on supplemental oxygen; Z91.040 Latex allergy status; Z68.43 Body mass index [BMI] 50.0-59.9, adult; Z87.891 Personal history of nicotine dependence; Z90.710 Acquired absence of both cervix and uterus
CPT/HCPCS: 36415; 47562; 85025; 94640; J0330; J1100; J1170; J1335; J2405; J2704; J2710; J2765; J3010; J7030; J7050; J7120; J7611; S2900